=== PATIENT | female | born 1960 | race Caucasian/White ===

== ENCOUNTER → 2017-01-31 09:06 | Outpatient (CLI) | payer MEDICARE ==
[~2017-01-31 09:06] MED LIST: AMITRIPTYLINE H50 MG PO; ANCEF 1 GM/D5W 51 G1 IV; BAYER CHEWABLE81 MG PO; CLEOCIN PREMIX600 MG IV; CRESTOR5 MG PO; HYDROCODONE-APA1 TAB PO; INDERAL LA160 MG PO; LEVOXYL50 MCG PO; NEURONTIN 300300 MG PO; PLAVIX75 MG PO; PROTONIX40 MG PO; ROPINIROLE HCL2 MG PO; WELLBUTRIN SR150 MG PO; ZANAFLEX4 MG PO; ZESTRIL10 MG PO
[2017-04-06 12:51] VITALS: BMI 29.5
== END | disposition home or self-care (01) ==
LOC: D.NM 01-27 10:30
DX: Z85.3 Personal history of malignant neoplasm of breast (principal)

== ENCOUNTER 2017-02-01 11:47 | Outpatient (CLI) | payer MEDICARE ==
--- NOTE | ~2017-02-01 | HEMODYNAMI ---
PATIENT:OZZY MONTANA MEDICAL RECORD: [id number] : 56 LOCATION:D.CAT ADMISSION DATE: 02/01/17 Generatedon:02/01/201715:15 Patient name: OZZY MONTANA Patient #: [id number] SSN: : 1960 Date of study: 02/01/2017 Page: Of Hemodynamic Procedure Report Patient Data Patient Demographics Procedure consent was obtained First Name: OZZY Gender: Female Last Name: NAN : 1960 Middle Initial: RYAN Age: 56 year(s) Patient #: [id number] Race: Unknown Additional ID: [id number] Contact details [address]: [address] [place] [address] State: [place] City: [facility] [place] Zip code: [address] Admission Admission Data Admission Date: 02/01/2017 Admission Time: 11:47 Procedure Procedure Types Cath Procedure Peripheral Cath Diagnostic Procedure Cath Peripheral Iopeo-Rpzffvq-Epr-Off Procedure Description Procedure Date Procedure Date: 02/01/2017 Procedure Start Time: 14:54 Procedure End Time: 15:14 Procedure Staff Name Function Ricardo Metzger MD Performing Physician John Frankel RN Nurse Stephanie Huang RT Scrub Akshat Landers RT Monitor Procedure Data Cath Procedure Fluoroscopy Diagnostic fluoroscopy Total fluoroscopy Time: 1.5 time: 1.5 min min Diagnostic fluoroscopy Total fluoroscopy dose: 397 dose: 397 mGy mGy Contrast Material Contrast Material Type Amount (ml) Isovue 300 88 Entry Location Entry Primary Successful Side Size Upsize Upsize Entry Closure Succes sful Closure Location (Fr) 1 (Fr) 2 (Fr) Remarks Device Remarks Femoral Left 5 Fr Exoseal artery Estimated blood loss: 10 ml Diagnostic catheters Device Type Used For End Catheter Placement Cordis Tempo 5Fr UF Procedure catheter Procedure Complications No complications Procedure Medications Medication Administration Route Dosage Oxygen NC 2 l/min Heparin Flush Bag added to field 2 bags (1000units/500ml NS) 0.9% NaCl I.V. 100 ml/hr Fentanyl I.V. 50 mcg Versed I.V. 1 mg Clonidine P.O. 0.1 mg Fentanyl I.V. 50 mcg Versed I.V. 1 mg Hemodynamics Rest Heart Rate: 61 (bpm) Snapshots Pre Cath Intra NCS Post Cath Vital Signs Time Heart Resp SPO2 etCO2 NIBP (mmHg) Rhythm Pain Sedation Rate (ipm) (%) (mmHg) Status Level (bpm) 14:43:53 60 18 98 36.2 208/96(166) NSR 0 (11) 10(A) , No pain 14:48:24 60 17 100 31.7 197/94(152) NSR 0 (11) 10(A) , No pain 14:52:54 60 16 99 18.1 179/83(153) NSR 0 (11) 10(A) , No pain 14:57:24 64 18 92 32.4 170/87(118) NSR 0 (11) 9(A) , No pain 15:01:48 72 16 90 27.9 171/101(146) NSR 0 (11) 9(A) , No pain 15:07:18 69 18 89 35.4 172/86(151) NSR 0 (11) 9(A) , No pain 15:12:31 68 18 90 36.2 168/79(118) NSR 0 (11) 9(A) , No pain Medications Time Medication Route Dose Verified Delivered Reason Notes Ef fectiveness by by 14:43:15 Oxygen NC 2 Ricardo John Per l/min Yassine Frankel RN physician 14:43:24 Heparin Flush added 2 Ricardo John used for Bag to bags Yassine Frankel RN procedure (1000units/500ml field NS) 14:43:33 0.9% NaCl I.V. 100 Ricardo John Per ml/hr Yassine Frankel RN physician 14:50:29 Fentanyl I.V. 50 Ricardo John for sedation mcg Yassine Frankel RN 14:50:35 Versed I.V. 1 mg Ricardo John for sedation Yassine Frankel RN 14:52:19 Clonidine P.O. 0.1 Ricardo John for mg Yassine Frankel RN hypertension 14:53:48 Fentanyl I.V. 50 Ricardo John for sedation mcg Yassine Frankel RN 14:53:52 Versed I.V. 1 mg Ricardo Lopez for sedation Yassine Frankel soda fountain manager Log Time Note 14:25:41 John Frankel RN sent for patient. Start room use. 14:34:42 Time tracking: Regular hours 14:34:45 Plan of Care:Hemodynamics will remain stable., Cardiac rhythm will remain stable., Comfort level will be maintained., Respiratory function will remain adequate., Patient/ family verbilizes understanding of procedure., Procedure tolerated without complication., Recovers from procedure without complications.. 14:37:07 Patient received from Pre/Post Procedure Room to CCL 2 Alert and oriented. Tansferred to table in Supine position. 14:37:09 Warm blankets applied, and krystin hugger turned on for patient comfort. 14:37:09 Correct patient and procedure confirmed by team. 14:37:10 Signed procedure consent form obtained from patient. 14:37:11 ECG and BP/O2 sat monitors applied to patient. 14:41:35 Vital chart was started 14:43:15 Oxygen 2 l/min NC was administered by John Frankel RN; Per physician; 14:43:24 Heparin Flush Bag (1000units/500ml NS) 2 bags added to field was administered by John Frankel RN; used for procedure; 14:43:33 0.9% NaCl 100 ml/hr I.V. was administered by John Frankel RN; Per physician; 14:47:22 Baseline sample Acquired. 14:47:27 Rhythm: sinus rhythm 14:47:29 Full Disclosure recording started 14:47:36 H&P Date Dictated: 01/18/2017 Within 30 days and on chart., H&P Addendum completed by physician on day of procedure. (MUST COMPLETE FOR ALL OUTPATIENTS). 14:47:36 Pre-procedure instructions explained to patient. 14:47:37 Pre-op teaching completed and patient verbalized understanding. 14:47:38 Family in waiting room. 14:47:40 Patient NPO since Midnight. 14:47:43 Is the patient allergic to Iodine/contrast media? No. 14:47:46 Is patient on blood thinner?No 14:47:48 Patient diabetic? No. 14:47:57 Previous problem with sedation/anesthesia? No ? 14:48:00 Snore? Yes 14:48:59 Sleep apnea? No 14:49:01 Deviated septum? No 14:49:01 Opens mouth fully? Yes 14:49:02 Sticks out tongue? Yes 14:49:04 Airway obstruction? No ? 14:49:06 Dentures? Yes IN 14:49:09 Patient not . Patient is over age 55. 14:49:13 Pre procedure: right dorsailis pedis pulse 1+ Palpable, but thready & weak; easily obliterated 14:49:15 Pre procedure: left dorsailis pedis pulse 1+ Palpable, but thready & weak; easily obliterated 14:49:17 Patient pain scale 0/10 ?. 14:49:23 IV patent on arrival in left forearm with 0.9% NaCl at [facility]. 14:49:25 Lab results completed and on chart. 14:49:28 Bilateral groins area was prepped with chlora-prep and draped in sterile fashion 14:49:29 Alarms reviewed by R. N. 14:49:29 Sharps counted by scrub and verified by R.N. 14:49:30 --------ALL STOP TIME OUT------ 14:49:30 Final Timeout: patient, procedure, and site verified with staff and physician. All members of the team are in agreement. 14:49:32 Bilateral groins site verified by team. 14:49:35 Physical assessment completed. ASA score P 2 - A patient with mild systemic disease as per Ricardo Metzger MD. 14:49:38 Sedation plan: IV Moderate Sedation Versed, Fentanyl 14:50:29 Fentanyl 50 mcg I.V. was administered by John Frankel RN; for sedation; 14:50:35 Versed 1 mg I.V. was administered by John Frankel RN; for sedation; 14:50:35 Use device set Femoral Dx 14:50:36 Tegaderm 4 x 4 opened to sterile field. 14:50:37 Acist Hand Control opened to sterile field. 14:50:38 Acist Manifold opened to sterile field. 14:50:39 Acist Syringe opened to sterile field. 14:50:39 Bag Decanter opened to sterile field. 14:50:40 Medline Cath Pack opened to sterile field. 14:50:40 Terumo 5Fr Coleridge Sheath opened to sterile field. 14:50:40 [facility]haji 260cm J .035 wire opened to sterile field. 14:50:51 Cook 18G 7cm Percutaneous Entry needle opened to sterile field. 14:52:19 Clonidine 0.1 mg P.O. was administered by John Frankel RN; for hypertension; 14:53:48 Fentanyl 50 mcg I.V. was administered by John Frankel RN; for sedation; 14:53:52 Versed 1 mg I.V. was administered by John Frankel RN; for sedation; 14:54:27 Procedure started. 14:54:31 Local anesthetic to left femerol artery with Lidocaine 2% by Ricardo Metzger MD.INITIAL ACCESS ONLY 14:54:57 A 5 Fr sheath was inserted into the Left Femoral artery 14:55:47 A [employer] Tempo 5Fr UF catheter was advanced over the wire and used for Procedure. 14:57:27 Abdominal Aortagram was performed. 14:58:36 Left leg runoff performed. 14:59:22 Right leg runoff performed. 15:04:07 Catheter removed. 15:04:31 Cordis 5Fr Exoseal opened to sterile field. 15:04:52 Sheath removed intact; hemostasis achieved with Exoseal to the Left Femoral artery. 15:08:27 Procedure ended.(Physican Out) 15:09:31 Fluoroscopy time 01.50 minutes. 15:09:35 Fluoroscopy dose: 397 mGy 15:09:35 Flurop Dose total: 397 15:10:03 Contrast amount:Isovue 300 88ml. 15:10:04 Sharps counted by scrub and verified by R.N. 15:10:05 Insertion/operative site no bleeding no hematoma. 15:10:09 Post-op/insertion site Left Femoral artery dressed using a 4 x 4 and Tegaderm. 15:10:10 Post Procedure Pulses reassessed and unchanged 15:10:12 Post-procedure physical assessment completed. ASA score P 2 - A patient with mild systemic disease as per Ricardo Meztger MD. 15:10:14 Post procedure rhythm: unchanged. 15:10:17 Estimated blood loss: 10 ml 15:10:19 Post procedure instruction explained to patient.Patient verbalizes understanding. 15:10:19 Patient needs reinforcement of post procedure teaching. 15:12:30 Procedure and supply charges have been captured, reviewed, submitted and are correct. 15:12:33 Procedure Complication : No complications 15:14:09 Vital chart was stopped 15:14:10 See physician's report for complete and final results. 15:14:47 Report given to Pre/Post Procedure Room. 15:14:50 Patient transfered to Pre/Post Procedure Room with Stretcher. 15:14:52 Procedure ended. 15:14:52 Full Disclosure recording stopped 15:15:01 End room use (Document Last) Device Usage Item Name Manufacture Quantity Catalog Hospital Part Current Minimal Lot# / Number Charge Number Stock Stock Serial# Code Tegaderm 4 x 3M 1 [id number] [id number] [id number] 5 4 Acist Hand Acist 1 50130 136766 067496 [id number] 5 Control [employer] Inc Acist Acist 1 57535 601720 794185 285169 5 Manifold [employer] Inc Acist Acist 1 37505 388504 663618 140623 20 Syringe [employer] Inc Bag Decanter Microtek 1 2002S 442890 31853 699129 5 Medical Inc[employer] Medline Cath Cardinal 1 [id number] 303538 33624 399884 5 Pack Health Terumo 5Fr Terumo 1 [id number] [id number] 081072 028800 [address] Al[employer]aji 1 016334 587734 811787 667889 30 260cm J .035 wire Cook 18G 7cm Cook Medical 1 [id number] 929623 65512 702934 5 Percutaneous Entry needle Cordis Tempo Cardinal 1 [id number] 376523 434570 593476 10 5Fr Health catheter Cordis 5Fr Cardinal 1 [id number] [id number] 305070 651827 [address] [facility] [employer] Signature Audit Golden Stage Time Signature Unsigned Intra-Procedure 02/01/2017 Akshat Landers 3:15:15 PM RT(R) Signatures Monitor : Akshat Landers RT Signature : Date : Time : [id number] [place] [address]
[2017-02-01] MEDS ORDERED: HYDROCODONE-APA1 TAB PO (12:18)
[2017-02-01] MEDS ORDERED: WELLBUTRIN SR150 MG PO (12:18)
[2017-02-01] MEDS ORDERED: LEVOXYL50 MCG PO (12:19)
[2017-02-01] MEDS ORDERED: NEURONTIN 300300 MG PO (12:19)
[2017-02-01] MEDS ORDERED: ROPINIROLE HCL2 MG PO (12:19)
[2017-02-01] MEDS ORDERED: ZANAFLEX4 MG PO (12:20)
[2017-02-01] MEDS ORDERED: CRESTOR5 MG PO (12:20)
[2017-02-01] MEDS ORDERED: PROTONIX40 MG PO (12:20)
[2017-02-01] MEDS ORDERED: AMITRIPTYLINE H50 MG PO (12:21)
[2017-02-01] MEDS ORDERED: INDERAL LA160 MG PO (12:21)
[2017-02-01] MEDS ORDERED: ZESTRIL10 MG PO (12:22)
[2017-02-01 12:25] VITALS: BP 201/83; BMI 27.3
[2017-02-01 12:30] LABS: BASOPHILS 1.2 % (0-2); EOSINOPHILS 4.5 % (0-7); HEMATOCRIT 43.9 % (36.0-48.0); HEMOGLOBIN 14.6 g/dL (12-16); IMMATURE GRANULOCYTES 0.3 % (0-5); LYMPHOCYTES 25.2 % (15-50); MCH 31.9 pg (26.0-34.0); MCHC 33.3 g/dL (31.0-37.0); MCV 95.9 fL (80.0-100.0); MEAN PLATELET VOLUME 10.5 fL (7.4-10.4); MONOCYTES 9.9 % (2-11); NEUTROPHILS 58.9 % (40-80); PLATELET COUNT 207 10x3/uL (130-400); RBC 4.58 10x6/uL (4.00-5.40); RDW 13.4 % (11.5-14.5); WBC 7.8 10x3/uL (4.8-10.8)
[2017-02-01 12:39] LABS: CHLORIDE - SERUM 104 mmol/L (98-107); POTASSIUM - SERUM 4.6 mmol/L (3.5-5.1); SODIUM 141 mmol/L (136-145)
[2017-02-01 12:46] LABS: CALC OSMOLALITY 280 mosm/kg (275-300); CALCIUM 9.3 mg/dL (8.5-10.1); CARBON DIOXIDE 26.1 mmol/L (21.0-32.0); CREATININE - SERUM 0.8 mg/dL (0.6-1.3); GLUCOSE 89 mg/dL (74-106); UREA NITROGEN 14 mg/dL (7-18); eGFR NON AFRICAN AMERICAN 78 mL/min (90-120)
--- NOTE | 2017-02-01 15:35 | NUR ---
2L NC, NO RESP DISTRESS. LEFT GROIN 5F EXOSEAL CDI, NO BLEEDING OR HEMATOMA NOTED. NO C/O PAIN OR NAUSEA. SYSTOLIC BP IN THE 180s. CLONIDINE GIVEN PER ORDERS. SEE MAR. FAMILY AT BEDSIDE, CALL LIGHT WITHIN REACH.
--- NOTE | 2017-02-01 16:05 | NUR ---
PLACED ON BEDPAN, VOIDED 300CC OF CLEAR YELLOW URINE.
--- NOTE | 2017-02-01 17:12 | NUR ---
HOB ELEVATED 30 DEGREES. LEFT GROIN 5F EXOSEAL CDI, NO BLEEDING OR HEMATOMA NOTED.
--- NOTE | 2017-02-01 17:27 | NUR ---
LEFT FA PIV D/C'D WITH CATHETER INTACT, BAND AID TO SITE. UP TO BEDSIDE TO GET DRESSED.
--- NOTE | 2017-02-01 17:33 | NUR ---
DISCHARGE INSTRUCTIONS GIVEN, VERBALIZED UNDERSTANDING.
--- NOTE | 2017-02-01 17:40 | NUR ---
TAKEN OUT VIA WHEELCHAIR BY CATH JUDO TEACHER. LEFT FACILITY WITH FAMILY AND ALL PERSONAL BELONGINGS.
[2017-05-08] MEDS ORDERED: ANCEF 1 GM/D5W 51 G1 IV (13:45)
[2017-05-08] MEDS ORDERED: CLEOCIN PREMIX600 MG IV (13:46)
== END 2017-02-01 17:40 | disposition home or self-care (01) ==
LOC: D.CATH 11:47
PROVIDERS: Internal Medicine Cardiovascular Disease
DX: I70.211 Atherosclerosis of native arteries of extremities with intermittent claudication, right leg (principal); Z01.812 Encounter for preprocedural laboratory examination

== ENCOUNTER 2017-02-20 12:00 | Outpatient (CLI) | payer MEDICARE ==
[~2017-02-20] VITALS: Ht 152.4 cm; Wt 63.6 kg
--- NOTE | ~2017-02-20 | HEMODYNAMI ---
PATIENT:OZZY MONTANA MEDICAL RECORD: [id number] : 56 LOCATION:D.CAT ADMISSION DATE: 02/20/17 Generatedon:02/20/201716:24 Patient name: OZZY MONTANA Patient #: [id number] SSN: : 1960 Date of study: 02/20/2017 Page: Of Hemodynamic Procedure Report Patient Data Patient Demographics Procedure consent was obtained First Name: OZZY Gender: Female Last Name: NAN : 1960 [facility] Initial: RYAN Age: 56 year(s) Patient #: [id number] Race: Unknown Additional ID: [id number] Contact details Address: [address] [place] [address] State: [place] City: [facility] Zip code: [address] Past Medical History Allergies Allergen Reaction Date Comments Reported Other allergy 02/20/2017 Morphine,Adhesive Tape Admission Admission Data Admission Date: 02/20/2017 Admission Time: 12:00 Admit Source: Other Lab Results Lab Result Date: 02/20/2017 Lab Result Time: 0:00 Biochemistry Name Units Result Min Max BUN mg/dl 13 --(--*-)-- 7 18 Creatinine mg/dl 0.8 --(-*--)-- 0.6 1.3 CBC Name Units Result Min Max Hemoglobin g/dl 15 --(-*--)-- 13.5 17.5 Procedure Procedure Types Cath Procedure Peripheral vascular Intervention Angioplasty Angioplasty Iliac Initial Procedure Description Procedure Date Procedure Date: 02/20/2017 Procedure Start Time: 14:31 Procedure End Time: 16:24 Procedure Staff Name Function Ricardo Metzger MD Performing Physician Herman John RT Monitor Jessica Huntley RT Scrub Stephanie Huang RT Monitor Jeri Brink RN Nurse Procedure Data Cath Procedure Fluoroscopy Diagnostic fluoroscopy Total fluoroscopy Time: time: 24.3 min 24.3 min Diagnostic fluoroscopy Total fluoroscopy dose: 711 dose: 711 mGy mGy Contrast Material Contrast Material Type Amount (ml) Isovue 300 127 Entry Location Entry Primary Successful Side Size Upsize Upsize Entry Closure Succes sful Closure Location (Fr) 1 (Fr) 2 (Fr) Remarks Device Remarks Femoral Left 5 Fr Exoseal 5F artery EXOSEAL Femoral Right 6 Fr Exoseal 6F artery Short EXOSEAL Estimated blood loss: 10 ml Diagnostic catheters Device Type Used For End Catheter Placement Cordis Tempo 5Fr UF Procedure catheter Procedure Complications No complications Procedure Medications Medication Administration Route Dosage Fentanyl I.V. 50 mcg Versed I.V. 1 mg 0.9% NaCl I.V. 100 ml/hr Lidocaine 2% added to field 20 Heparin Flush Bag added to field 2 bags (1000units/500ml NS) Oxygen NC 2 l/min Fentanyl I.V. 50 mcg Versed I.V. 1 mg Fentanyl I.V. 25 mcg Heparin Bolus I.V. 6000 units Fentanyl I.V. 25 mcg Nitroglycerin IC/IA I.C. 200 mcg Fentanyl I.V. 50 mcg Plavix P.O. 600 mg Hemodynamics Rest HGB: 15 (g/dl) Heart Rate: 61 (bpm) Snapshots Pre Cath Intra NCS Post Cath Vital Signs Time Heart Resp SPO2 etCO2 NIBP (mmHg) Rhythm Pain Sedation Rate (ipm) (%) (mmHg) Status Level (bpm) 14:17:10 64 17 97 26.2 181/94(145) NSR 0 (11) 10(A) , No pain 14:21:51 62 18 99 30 153/79(119) NSR 0 (11) 10(A) , No pain 14:26:33 61 21 99 30 154/77(129) NSR 0 (11) 10(A) , No pain 14:31:18 58 14 97 33 160/71(106) NSR 0 (11) 10(A) , No pain 14:36:01 65 14 94 36.8 158/88(128) NSR 0 (11) 9(A) , No pain 14:40:39 67 14 95 37.5 147/81(120) NSR 0 (11) 9(A) , No pain 14:45:20 65 14 94 37.5 159/83(147) NSR 0 (11) 9(A) , No pain 14:50:05 62 14 93 37.5 136/80(102) NSR 0 (11) 9(A) , No pain 14:55:22 64 15 94 36.8 140/73(101) NSR 0 (11) 9(A) , No pain 15:00:03 63 15 94 35.3 149/77(130) NSR 0 (11) 9(A) , No pain 15:04:47 65 15 94 36 154/77(97) NSR 0 (11) 9(A) , No pain 15:09:32 68 14 94 33 162/76(116) NSR 0 (11) 9(A) , No pain 15:14:08 70 14 94 36.8 137/73(129) NSR 0 (11) 9(A) , No pain 15:18:47 66 15 93 36.8 137/73(132) NSR 0 (11) 9(A) , No pain 15:23:25 71 14 93 37.5 137/72(111) NSR 0 (11) 9(A) , No pain 15:28:08 69 15 93 36.8 141/72(126) NSR 0 (11) 9(A) , No pain 15:32:53 64 15 94 36.8 147/68(126) NSR 0 (11) 9(A) , No pain 15:37:34 65 15 94 35.3 142/75(117) NSR 0 (11) 9(A) , No pain 15:42:12 64 13 94 36.8 131/66(123) NSR 0 (11) 9(A) , No pain 15:47:29 64 15 94 37.5 151/72(99) NSR 0 (11) 9(A) , No pain 15:52:14 64 14 94 37.5 138/74(123) NSR 0 (11) 9(A) , No pain 15:56:57 64 14 95 36 145/73(112) NSR 0 (11) 9(A) , No pain 16:01:42 64 13 93 36 138/71(103) NSR 0 (11) 9(A) , No pain 16:06:59 62 17 96 35.2 154/86(135) NSR 0 (11) 9(A) , No pain 16:12:23 66 21 98 33.7 164/89(113) NSR 0 (11) 10(A) , No pain 16:17:48 65 17 98 22.5 179/88(133) NSR 0 (11) 10(A) , No pain 16:22:31 71 16 97 33.8 166/93(119) NSR 0 (11) 10(A) , No pain Medications Time Medication Route Dose Verified Delivered Reason Not es Effectiveness by by 14:25:10 Heparin Flush added 2 bags Ricardo Ricardo for Bag to Yassine Metzger MD vasodilation (1000units/500ml field NS) 14:25:24 Oxygen NC 2 l/min Ricardo Buffie Per physician Yassine Brink RN 14:25:33 0.9% NaCl I.V. 100ml/hr Ricardo Buffie used for Yassine Brink RN procedure 14:25:53 Lidocaine 2% added 20ml Ricardo Ricardo for local to vial Yassine Metzger MD anesthetic field 14:27:57 Fentanyl I.V. 50 mcg Ricardo Buffie for sedation Yassine Brink RN 14:28:12 Versed I.V. 1 mg Ricardo Buffie for sedation Yassine Brink RN 14:31:51 Fentanyl I.V. 50 mcg Ricardo Buffie for sedation Yassine Brink RN 14:31:59 Versed I.V. 1 mg Ricardo Buffie for sedation Yassine Brink RN 15:07:58 Fentanyl I.V. 25 mcg Ricardo Buffie for sedation Yassine Brink RN 15:18:14 Heparin Bolus I.V. 6000 Ricardo Buffie for keagan ified units Yassine Brink RN anticoagulation with dr metzger. 15:37:27 Fentanyl I.V. 25 mcg Ricardo Buffie for sedation Yassine Brink RN 16:00:23 Nitroglycerin I.C. 200 mcg Ricardo Ricardo for IC/IA Yassine Metzger MD vasodilation 16:07:06 Fentanyl I.V. 50 mcg Ricardo Ricardo for sedation Yassine Metzger MD 16:23:42 Plavix P.O. 600 mg Ricardo Buffie for Yassine Brink RN antiplatelet therapy Procedure Log Time Note 13:49:59 Informed consent obtained and on chart 13:51:03 Admit Source: Other 13:51:42 Diagnostic Cath status Elective 13:51:43 Time tracking: Regular hours 13:51:47 Plan of Care:Hemodynamics will remain stable., Cardiac rhythm will remain stable., Comfort level will be maintained., Respiratory function will remain adequate., Patient/ family verbilizes understanding of procedure., Procedure tolerated without complication., Recovers from procedure without complications.. 14:02:46 Jeri Brink RN sent for patient. Start room use. 14:11:21 Patient received from Pre/Post Procedure Room to CCL 1 Alert and oriented. Tansferred to table in Supine position. 14:11:22 Warm blankets applied, and krystin hugger turned on for patient comfort. 14:11:23 Correct patient and procedure confirmed by team. 14:11:24 ECG and BP/O2 sat monitors applied to patient. 14:16:16 Vital chart was started 14:18:16 H&P Date Dictated: 02/20/2017 New H&P dictated by physician.. 14:18:18 Pre-procedure instructions explained to patient. 14:18:18 Pre-op teaching completed and patient verbalized understanding. 14:18:19 Family in waiting room. 14:18:21 Patient NPO since Midnight. 14:18:35 Patient allergic to Other allergyMorphine,Adhesive Tape 14:18:37 Is the patient allergic to Iodine/contrast media? No. 14:18:39 Is patient on blood thinner?No 14:19:02 Patient diabetic? No. 14:19:08 Previous problem with sedation/anesthesia? No ? 14:19:10 Snore? Yes 14:19:12 Sleep apnea? No 14:19:20 Deviated septum? No 14:19:23 Opens mouth fully? Yes 14:19:24 Sticks out tongue? Yes 14:19:26 Airway obstruction? No ? 14:19:38 Dentures? Yes IN TIGHT 14:19:44 Pre procedure: right dorsailis pedis pulse 2+ Normal; easily identifiable; not easily obliterated 14:19:48 Patient pain scale 0/10 ?. 14:20:25 IV patent on arrival in left antecubital with 0.9% NaCl at [facility]. 14:20:50 Lab results completed and on chart. 14:22:52 Lab Result : BUN 13 mg/dl 14:22:52 Lab Result : Creatinine 0.8 mg/dl 14:22:52 Lab Result : Hemoglobin 15 g/dl 14:23:09 Bilateral groins area was prepped with chlora-prep and draped in sterile fashion 14:23:11 Alarms reviewed by R. N. 14:23:11 Sharps counted by scrub and verified by R.N. 14:25:05 Use device set Femoral PCI 14:25:09 Tegaderm 4 x 4 opened to sterile field. 14:25:10 Heparin Flush Bag (1000units/500ml NS) 2 bags added to field was administered by Ricardo Metzger MD; for vasodilation; 14:25:10 Acist Manifold opened to sterile field. 14:25:11 Acist Syringe opened to sterile field. 14:25:11 Acist Hand Control opened to sterile field. 14:25:13 Merit BasixCompak Inflation Kit opened to sterile field. 14:25:14 St Alhaji 260cm J .035 wire opened to sterile field. 14:25:15 Medline Cath Pack opened to sterile field. 14:25:16 Bag Decanter opened to sterile field. 14:25:18 Terumo 6Fr Monson Sheath opened to sterile field. 14:25:24 Oxygen 2 l/min NC was administered by Jeri Brink RN; Per physician; 14:25:33 0.9% NaCl 100ml/hr I.V. was administered by Jeri Brink RN; used for procedure; 14:25:44 Terumo 5Fr Monson Sheath opened to sterile field. 14:25:45 Cordis 6Fr Brite Tip 35cm Sheath opened to sterile field. 14:25:53 Lidocaine 2% 20ml vial added to field was administered by Ricardo Metzger MD; for local anesthetic; 14:26:01 Baseline sample Acquired. 14:26:11 Rhythm: sinus rhythm 14:26:13 Full Disclosure recording started 14:26:46 --------ALL STOP TIME OUT------ 14:26:48 Final Timeout: patient, procedure, and site verified with staff and physician. All members of the team are in agreement. 14:26:50 Bilateral groins site verified by team. 14:26:52 Physical assessment completed. ASA score P 2 - A patient with mild systemic disease as per Ricardo Metzger MD. 14::57 Sedation plan: IV Moderate Sedation Medication:Versed, Fentanyl 14::57 Fentanyl 50 mcg I.V. was administered by Buffie Brink RN; for sedation; 14:28:12 Versed 1 mg I.V. was administered by Jeri Brink RN; for sedation; 14:31:49 Procedure started. 14:31:51 Fentanyl 50 mcg I.V. was administered by Jrei Brink RN; for sedation; 14:31:55 Local anesthetic to left femerol artery with Lidocaine 2% by Ricardo Metzger MD.INITIAL ACCESS ONLY 14:31:59 Versed 1 mg I.V. was administered by Jeri Brink RN; for sedation; 14:33:15 Zero performed for pressure channel P1 14:49:08 CovidiAskYou Wholey 300cm 0.035 wire opened to sterile field. 14:49:37 A 5 Fr sheath was inserted into the Left Femoral artery 14:50:42 A NewACT 5Fr UF catheter was advanced over the wire and used for Procedure. 14:51:25 Wire redirected to WHOLEY. 14:52:59 Right leg runoff performed. 14:54:07 Local anesthetic to right femoral artery with Lidocaine 2% by Ricardo Metzger MD.ADDITIONAL ACCESS 15:00:08 Cook 4Fr Micropuncture ([id number]) opened to sterile field. 15:07:20 Access obtained with 4Fr micropunture. 15:07:58 Fentanyl 25 mcg I.V. was administered by Jeri Brink RN; for sedation; 15:08:22 A 6 Fr Short sheath was inserted into the Right Femoral artery 15:10:54 CSI Regalia wire 300cm opened to sterile field. 15:11:36 CXI SUPPORT .018 150CM STR catheter opened to sterile field. 15:12:46 REGALIA wire advanced. 15:13:05 CXI SUPPORT ADVANCED OVER REGALIA 15:15:01 Wire advanced across lesion. 15:18:14 Heparin Bolus 6000 units I.V. was administered by Jeri Brink RN; for anticoagulation; verified with dr metzger. 15:21:24 Inflation number: 1 A Saber 4.0 x 4 x 150 balloon was prepped and advanced across the Proximal Common Femoral, Right, then inflated to 9 SHAWN for 0:10 (min:sec). 15:22:26 Inflation number: 2 The Saber 4.0 x 4 x 150 balloon was reinflated across the Proximal Common Femoral, Right, to 9 SHAWN for 0:00 (min:sec). 15:23:37 Balloon removed over the wire. 15:24:25 Terumo 4FR Straight 100CM glide catheter opened to sterile field. 15:29:42 Inflation number: 3 A Cordis Powerflex Pro 6.0 x 40 x 135cm balloon was prepped and advanced across the Proximal Common Femoral, Right, then inflated to 9 SHAWN for 0:30 (min:sec). 15:31:43 Inflation number: 4 The Cordis Powerflex Pro 6.0 x 40 x 135cm balloon was reinflated across the Proximal Common Femoral, Right, to 9 SHAWN for 1:07 (min:sec). 15:33:44 Inflation number: 5 The Cordis Powerflex Pro 6.0 x 40 x 135cm balloon was reinflated across the Proximal Common Femoral, Right, to 2 SHAWN for 1:09 (min:sec). 15:35:47 Balloon removed over the wire. 15:37:27 Fentanyl 25 mcg I.V. was administered by Jeri Brink RN; for sedation; 15:38:33 Inflation number: 6 A Cordis Powerflex Pro 7.0 x 20 x 135 cm balloon was prepped and advanced across the Proximal Common Femoral, Right, then inflated to 6 SHAWN for 0:51 (min:sec). 15:40:00 Inflation number: 7 The Cordis Powerflex Pro 7.0 x 20 x 135 cm balloon was reinflated across the Proximal Common Femoral, Right, to 10 SHAWN for 1:05 (min:sec). 15:41:34 Inflation number: 8 The Cordis Powerflex Pro 7.0 x 20 x 135 cm balloon was reinflated across the Proximal Common Femoral, Right, to 10 SHAWN for 1:10 (min:sec). 15:45:21 Inflation number: 9 The Cordis Powerflex Pro 7.0 x 20 x 135 cm balloon was reinflated across the Proximal Common Femoral, Right, to 10 SHAWN for 1:32 (min:sec). 15:45:44 Balloon removed over the wire. 15:52:07 Inflation number: 10 The Cordis Powerflex Pro 6.0 x 40 x 135cm balloon was reinflated across the Proximal Common Femoral, Right, to 12 SHAWN for 2:22 (min:sec). 15:52:27 Balloon removed over the wire. 16:00:23 Nitroglycerin IC/IA 200 mcg I.C. was administered by Ricardo Metzger MD; for vasodilation; 16:04:28 Inflation number: 11 A Cordis Powerflex Pro 5.0 x 40 x 135cm balloon was prepped and advanced across the Proximal Common Femoral, Right, then inflated to 2 SHAWN for 1:10 (min:sec). 16:04:39 Balloon removed over the wire. 16:07:06 Fentanyl 50 mcg I.V. was administered by Ricardo Metzger MD; for sedation; 16:08:19 Catheter removed. 16:08:40 Cordis 5Fr Exoseal opened to sterile field. 16:08:41 Cordis 6Fr Exoseal opened to sterile field. 16:09:08 Sheath removed intact; hemostasis achieved with Exoseal to the Left Femoral artery. 16:09:19 Sheath removed intact; hemostasis achieved with Exoseal to the Right Femoral artery. 16:10:32 Procedure ended.(Physican Out) 16:11:23 Fluoroscopy time 24.30 minutes. 16::28 Flurop Dose total: 711 16:: Fluoroscopy dose: 711 mGy 16:11:32 Contrast amount:Isovue 300 127ml. 16:11:34 Sharps counted by scrub and verified by R.N. 16:13:22 Insertion/operative site no bleeding no hematoma. 16:13:46 Post-op/insertion site Right Femoral artery dressed using a 4 x 4 and Tegaderm. 16:13:53 Post-op/insertion site Left Femoral artery dressed using a 4 x 4 and Tegaderm. 16:14:36 Post right femoral artery:stable, soft, clean and dry 16:14:44 Post left femerol artery:stable, clean and dry, unstable 16:14:52 Post Procedure Pulses reassessed and unchanged 16:14:57 Post procedure: right dorsailis pedis pulse 2+ Normal; easily identifiable; not easily obliterated. 16:15:01 Post-procedure physical assessment completed. ASA score P 2 - A patient with mild systemic disease as per Ricardo Metzger MD. 16:15:06 Post procedure rhythm: unchanged. 16:15:09 Estimated blood loss: 10 ml 16:15:10 Post procedure instruction explained to patient.Patient verbalizes understanding. 16:15:11 Patient needs reinforcement of post procedure teaching. 16:15:49 Procedure type changed to Cath procedure, Peripheral vascular Intervention, Angioplasty, Angioplasty Iliac Initial 16:19:55 Procedure and supply charges have been captured, reviewed, submitted and are correct. 16:19:58 Procedure Complication : No complications 16:23:42 Plavix 600 mg P.O. was administered by Jeri Brink RN; for antiplatelet therapy; 16:23:53 Vital chart was stopped 16:23:53 See physician's report for complete and final results. 16:23:55 Report given to Pre/Post Procedure Room. 16:23:59 Patient transfered to Pre/Post Procedure Room with Bed. 16:24:01 Procedure ended. 16:24:01 Full Disclosure recording stopped 16:24:09 End room use (Document Last) Intervention Summary Intervention Notes Time ActionType Lesion and Equipment Action# Pressure Duration Attributes Used 15:21:24 Inflate Proximal Saber 4.0 1 9 00:10 balloon Common x 4 x 150 Femoral, balloon Right 15:22:26 Reinflate Proximal Saber 4.0 2 9 00:00 balloon Common x 4 x 150 Femoral, balloon Right 15:29:42 Inflate Proximal Cordis 3 9 00:30 balloon Common Powerflex Femoral, Pro 6.0 x Right 40 x 135cm balloon 15:31:43 Reinflate Proximal Cordis 4 9 01:07 balloon Common Powerflex Femoral, Pro 6.0 x Right 40 x 135cm balloon 15:33:44 Reinflate Proximal Cordis 5 2 01:09 balloon Common Powerflex Femoral, Pro 6.0 x Right 40 x 135cm balloon 15:38:33 Inflate Proximal Cordis 6 6 00:51 balloon Common Powerflex Femoral, Pro 7.0 x Right 20 x 135 cm balloon 15:40:00 Reinflate Proximal Cordis 7 10 01:05 balloon Common Powerflex Femoral, Pro 7.0 x Right 20 x 135 cm balloon 15:41:34 Reinflate Proximal Cordis 8 10 01:10 balloon Common Powerflex Femoral, Pro 7.0 x Right 20 x 135 cm balloon 15:45:21 Reinflate Proximal Cordis 9 10 01:32 balloon Common Powerflex Femoral, Pro 7.0 x Right 20 x 135 cm balloon 15:52:07 Reinflate Proximal Cordis 10 12 02:22 balloon Common Powerflex Femoral, Pro 6.0 x Right 40 x 135cm balloon 16:04:28 Inflate Proximal Cordis 11 2 01:10 balloon Common Powerflex Femoral, Pro 5.0 x Right 40 x 135cm balloon Device Usage Item Name Manufacture Quantity Catalog Hospital Part Current Mini mal Lot# / Number Charge Number Stock Stock Serial# Code Tegaderm 4 x 3M 1 [id number] [id number] 5 4 Acist Acist Medical 1 07902 869827 073988 020676 5 Manifold Systems Inc Acist Syringe Acist Medical 1 44660 769036 630766 796696 20 Systems Inc Acist Hand Acist Medical 1 60098 185678 946836 213290 5 Control Systems Inc [facility] 1 [id number] 363282 409884 833885 [address] [facility] [address] [facility] Alhaji 1 [id number] 194310 627204 574405 30 J .035 wire Medline Cath Cardinal 1 [id number] 051280 79800 572124 5 Pack Health Bag Decanter Microtek 1 2002S 716233 88117 013139 5 Medical Inc. Terumo 6Fr Terumo 1 [id number] 190382 997972 796550 40 Monson Sheath Terumo 5Fr Terumo 1 [id number] 529751 126631 834893 40 Monson Sheath Cordis 6Fr Cardinal 1 [id number] 812538 586508 513483 1 Brite Tip Health 35cm Sheath Covidien Medtronic 1 [id number] 881187 974875 049507 3 Wholey 300cm 0.035 wire Cordis Tempo Cardinal 1 [id number] 120295 880356 890877 10 5Fr UF Health catheter Cook 4Fr Cook Medical 1 [id number] 229785 169819 851042 5 Micropuncture (G00074) CSI Regalia Cardiovascular 1 [id number] 092396 983499 129973 1 wire 300cm systems CXI SUPPORT Cook Medical 1 [id number] 884432 069989 5 .018 150CM STR catheter Saber 4.0 x 4 Cardinal 1 [id number] 259567 720555 5 x 150 balloon Health Terumo 4FR Terumo 1 [id number] 136768 433314 5 Straight 100CM glide catheter Cordis Cardinal 1 [id number] 067252 014103 351276 5 Powerflex Pro Health 6.0 x 40 x 135cm balloon Cordis Cardinal 1 [id number] 139055 732436 306286 5 Powerflex Pro Health 7.0 x 20 x 135 cm balloon Cordis Cardinal 1 [id number] 363015 399618 537890 5 Powerflex Pro Health 5.0 x 40 x 135cm balloon Cordis 5Fr Cardinal 1 EX500 729951 046881 505797 10 Exoseal Health Cordis 6Fr Cardinal 1 EX600 910410 365803 321197 10 Exoseal Health Signature Audit Costa Stage Time Signature Unsigned Intra-Procedure 02/20/2017 Stephanie Huang 4:24:26 PM RT(R) Signatures Monitor : Herman John RT Signature : Date : Time : Monitor : Stephanie Huang Signature : RT Date : Time : [place] [id number] [place] [address]
[~2017-02-20 12:00] MED LIST changes: -ANCEF 1 GM/D5W 51 G1 IV; -BAYER CHEWABLE81 MG PO; -CLEOCIN PREMIX600 MG IV; -PLAVIX75 MG PO
[2017-02-20 12:24] VITALS: BP 179/74; Ht 152.4 cm; Wt 63.6 kg
[2017-02-20 12:56] LABS: BASOPHILS 1.5 % (0-2); EOSINOPHILS 5.6 % (0-7); IMMATURE GRANULOCYTES 0.3 % (0-5); LYMPHOCYTES 28.7 % (15-50); MCHC 33.3 g/dL (31.0-37.0); MCV 95.9 fL (80.0-100.0); MONOCYTES 9.9 % (2-11); PLATELET COUNT 223 10x3/uL (130-400); RBC 4.69 10x6/uL (4.00-5.40); RDW 13.2 % (11.5-14.5); WBC 6.7 10x3/uL (4.8-10.8)
[2017-02-20 13:15] LABS: CALC OSMOLALITY 277 mosm/kg (275-300); CALCIUM 9.1 mg/dL (8.5-10.1); CARBON DIOXIDE 28.7 mmol/L (21.0-32.0); CHLORIDE - SERUM 104 mmol/L (98-107); CREATININE - SERUM 0.8 mg/dL (0.6-1.3); GLUCOSE 98 mg/dL (74-106); SODIUM 139 mmol/L (136-145); UREA NITROGEN 13 mg/dL (7-18); eGFR NON AFRICAN AMERICAN 78 mL/min (90-120)
[2017-02-20] MEDS ORDERED: BAYER CHEWABLE81 MG PO (16:50)
[2017-02-20] MEDS ORDERED: PLAVIX75 MG PO (16:50)
--- NOTE | 2017-02-20 17:23 | NUR ---
1650 LYING FLAT, ROOM AIR WITH NO RESP. DISTRESS. NSR RATE 66 WNO C/O CHEST PAIN. PULSES PALP X 4. RIGHT GROIN 5F EXOSEAL C/D/I. LEFT GROIN 6F EXOSEAL C/D/I WITH NO HEMATOMA OR BLEEDING. VOIDED 200CC VIA BEDPAN. URINE YELLOW/CLEAR. DR. MAHAN AT BEDSIDE TO DISCUSS PROCEDURE AND PLAN FOR FURTHER TREATMENT.
--- NOTE | 2017-02-20 17:28 | NUR ---
1720 REMAINS FLAT, ROOM AIR AND ALL VITALS WNL. BLE PULSES PALP. L/R GROINS C/D/I W NO HEMAOTOMA OR BLEEDING.
--- NOTE | 2017-02-20 17:56 | NUR ---
1750 R/L GROIN REMAIN C/D/I W NO HEMATOMA OR BLEEDING.
--- NOTE | 2017-02-20 18:20 | NUR ---
1820 PT VOIDED APPROXIMATELY 400 CC OF CLEAR YELLOW URINE TO URINAL. LEFT AND RIGHT GROIN DRESSINGS ARE CDI, NO BLEEDING OR HEMATOMA NOTED. FEET WARM, CAP REFILL IS BRISK. NO FAMILY AT BEDSIDE, CALL LIGHT IN REACH.
--- NOTE | 2017-02-20 19:00 | NUR ---
1900 PT DENIES ANY C/O. SANDWICH SERVED. DRESSINGS TO LEFT AND RIGHT GROINS ARE CDI.
--- NOTE | 2017-02-20 19:30 | NUR ---
1929 SANDWICH TRAY SERVED. DRESSINGS BILAT GROINS CDI. PT DENIES ANY C/O.
--- NOTE | 2017-02-20 19:50 | NUR ---
1940 [facility] ELEVATED. DC INSTRUCTIONS REVIEWED WITH PT AND DAUGHTER WHO VERBALIZE UNDERSTANDING.
--- NOTE | 2017-02-20 19:51 | NUR ---
BILAT GROIN DRESSINGS REMAIN CDI. IV DC'D WITH CATH INTACT. PT DRESSING FOR DC TO HOME.
--- NOTE | 2017-02-20 20:05 | NUR ---
2000 DRESSINGS TO BILAT GROINS REMAIN CDI. PT ESCORTED TO PRIVATE AUTO VIA WC BY NURSE WITH DAUGHTER DRIVING HER HOME. PT DENIES ANY C/O UPON DC.
[2017-05-08] MEDS ORDERED: ANCEF 1 GM/D5W 51 G1 IV (13:45)
[2017-05-08] MEDS ORDERED: CLEOCIN PREMIX600 MG IV (13:46)
== END 2017-02-20 20:00 | disposition home or self-care (01) ==
LOC: D.CATH 12:00
PROVIDERS: Internal Medicine Cardiovascular Disease
DX: I70.211 Atherosclerosis of native arteries of extremities with intermittent claudication, right leg (principal); I25.10 Atherosclerotic heart disease of native coronary artery without angina pectoris; I10 Essential (primary) hypertension; Z01.812 Encounter for preprocedural laboratory examination

== ENCOUNTER 2017-03-30 06:27 | Inpatient (IN) | payer MEDICARE, MEDICAID | END 2017-05-12 20:22 | DRG 270 | LOC: D.CATH 06:27 → D.CVICU 14:16 → D.ICU 04-13 11:28 → D.M2 05-01 18:12 | PROC: 04CK3ZZ Extirpation of Matter from Right Femoral Artery, Percutaneous Approach (ICD-10-PCS; 2017-03-30) | PROC: 047 Lower Arteries, Dilation (ICD-10-PCS; 2017-03-30) | PROC: 047K3D1 Dilation of Right Femoral Artery with Intraluminal Device, using Drug-Coated Balloon, Percutaneous Approach (ICD-10-PCS; 2017-03-30) | PROC: 0KNR0ZZ Release Left Upper Leg Muscle, Open Approach (ICD-10-PCS; principal; 2017-04-02) | PROC: 5A09457 Assistance with Respiratory Ventilation, 24-96 Consecutive Hours, Continuous Positive Airway Pressure (ICD-10-PCS; 2017-04-03) | PROC: 0B9F8ZX Drainage of Right Lower Lung Lobe, Via Natural or Artificial Opening Endoscopic, Diagnostic (ICD-10-PCS; 2017-04-04) | PROC: 0BH17EZ Insertion of Endotracheal Airway into Trachea, Via Natural or Artificial Opening (ICD-10-PCS; 2017-04-04) | PROC: 5A1955Z Respiratory Ventilation, Greater than 96 Consecutive Hours (ICD-10-PCS; 2017-04-04) | PROC: 02HV33Z Insertion of Infusion Device into Superior Vena Cava, Percutaneous Approach (ICD-10-PCS; 2017-04-04) | PROC: B548ZZA Ultrasonography of Superior Vena Cava, Guidance (ICD-10-PCS; 2017-04-04) | PROC: 3E0T3BZ Introduction of Anesthetic Agent into Peripheral Nerves and Plexi, Percutaneous Approach (ICD-10-PCS; 2017-04-10) | PROC: 0BDB8ZX Extraction of Left Lower Lobe Bronchus, Via Natural or Artificial Opening Endoscopic, Diagnostic (ICD-10-PCS; 2017-04-12) | PROC: 0BD48ZX Extraction of Right Upper Lobe Bronchus, Via Natural or Artificial Opening Endoscopic, Diagnostic (ICD-10-PCS; 2017-04-12) | PROC: 0BD88ZX Extraction of Left Upper Lobe Bronchus, Via Natural or Artificial Opening Endoscopic, Diagnostic (ICD-10-PCS; 2017-04-12) | PROC: 0BD38ZX Extraction of Right Main Bronchus, Via Natural or Artificial Opening Endoscopic, Diagnostic (ICD-10-PCS; 2017-04-12) | PROC: 0BD78ZX Extraction of Left Main Bronchus, Via Natural or Artificial Opening Endoscopic, Diagnostic (ICD-10-PCS; 2017-04-12) | PROC: 0BD68ZX Extraction of Right Lower Lobe Bronchus, Via Natural or Artificial Opening Endoscopic, Diagnostic (ICD-10-PCS; 2017-04-12) | PROC: 5A09457 Assistance with Respiratory Ventilation, 24-96 Consecutive Hours, Continuous Positive Airway Pressure (ICD-10-PCS; 2017-04-15) | PROC: 0D9E8ZZ Drainage of Large Intestine, Via Natural or Artificial Opening Endoscopic (ICD-10-PCS; 2017-04-20) | PROC: 0BD68ZX Extraction of Right Lower Lobe Bronchus, Via Natural or Artificial Opening Endoscopic, Diagnostic (ICD-10-PCS; 2017-04-22) | PROC: 0Y6J0Z1 Detachment at Left Lower Leg, High, Open Approach (ICD-10-PCS; 2017-04-25) | PROC: 0BDB8ZX Extraction of Left Lower Lobe Bronchus, Via Natural or Artificial Opening Endoscopic, Diagnostic (ICD-10-PCS; 2017-04-26) | PROC: 0BD48ZX Extraction of Right Upper Lobe Bronchus, Via Natural or Artificial Opening Endoscopic, Diagnostic (ICD-10-PCS; 2017-04-26) | PROC: 0BD88ZX Extraction of Left Upper Lobe Bronchus, Via Natural or Artificial Opening Endoscopic, Diagnostic (ICD-10-PCS; 2017-04-26) | PROC: 0BD58ZX Extraction of Right Middle Lobe Bronchus, Via Natural or Artificial Opening Endoscopic, Diagnostic (ICD-10-PCS; 2017-04-26) | PROC: 0BD38ZX Extraction of Right Main Bronchus, Via Natural or Artificial Opening Endoscopic, Diagnostic (ICD-10-PCS; 2017-04-26) | PROC: 0BD78ZX Extraction of Left Main Bronchus, Via Natural or Artificial Opening Endoscopic, Diagnostic (ICD-10-PCS; 2017-04-26) | PROC: 0BD68ZX Extraction of Right Lower Lobe Bronchus, Via Natural or Artificial Opening Endoscopic, Diagnostic (ICD-10-PCS; 2017-04-26) | DX: I77.72 Dissection of iliac artery (principal); J69.0 Pneumonitis due to inhalation of food and vomit; A41.9 Sepsis, unspecified organism; R65.21 Severe sepsis with septic shock; J96.01 Acute respiratory failure with hypoxia; K72.00 Acute and subacute hepatic failure without coma; K66.1 Hemoperitoneum; M62.82 Rhabdomyolysis; M79.A22 Nontraumatic compartment syndrome of left lower extremity; E87.0 Hyperosmolality and hypernatremia; J98.11 Atelectasis; D62 Acute posthemorrhagic anemia; J44.1 Chronic obstructive pulmonary disease with (acute) exacerbation; E87.1 Hypo-osmolality and hyponatremia; I82.611 Acute embolism and thrombosis of superficial veins of right upper extremity; K56.609 Unspecified intestinal obstruction, unspecified as to partial versus complete obstruction; B37.49 Other urogenital candidiasis; I70.211 Atherosclerosis of native arteries of extremities with intermittent claudication, right leg; I10 Essential (primary) hypertension; I25.10 Atherosclerotic heart disease of native coronary artery without angina pectoris; E78.5 Hyperlipidemia, unspecified; E83.42 Hypomagnesemia; E83.39 Other disorders of phosphorus metabolism; M72.9 Fibroblastic disorder, unspecified; E87.6 Hypokalemia; E03.9 Hypothyroidism, unspecified; R00.0 Tachycardia, unspecified; T85.898A Other specified complication of other internal prosthetic devices, implants and grafts, initial encounter; Y83.9 Surgical procedure, unspecified as the cause of abnormal reaction of the patient, or of later complication, without mention of misadventure at the time of the procedure; E87.5 Hyperkalemia; S30.1XXA Contusion of abdominal wall, initial encounter; Z85.3 Personal history of malignant neoplasm of breast; Z72.0 Tobacco use; K59.00 Constipation, unspecified ==

== ENCOUNTER 2017-05-12 16:00 | Inpatient (IN) | payer MEDICARE, MEDICAID ==
[~2017-05-12] VITALS: Ht 152.4 cm; Wt 68.9 kg
--- NOTE | ~2017-05-12 | RHP ---
PATIENT: OZZY MONTANA MEDICAL RECORD: [id number] ACCOUNT: [id number] LOCATION:[facility] D.1110 : 56 ADMISSION DATE: 05/12/17 REHABILITATION HISTORY AND PHYSICAL EXAMINATION POST ADMISSION PHYSICIAN EXAMINATION DATE OF ADMISSION TO THE REHAB: 05/12/2017. ADMITTING DIAGNOSIS: Critical illness myopathy HISTORY OF PRESENT ILLNESS: The patient is admitted to the inpatient rehabilitation for critical illness myopathy. She is a 57-year-old female patient with history of peripheral vascular disease. She was seen in the cardiac clinic recently and angiogram confirmed 100% occlusion of her right common iliac artery and reconstitution of the femoral head. She was admitted for REFERENCE TEST CLERK and stenting of the right common iliac artery. Right common iliac artery was successfully stented and flow was restored to the right lower leg; however, about an hour after intervention was completed, she developed a pulseless left foot. It appeared she had embolized from her aorta down to her left foot compromising her left foot and ankle. She underwent Emergency embolectomy and flow was restored to her ankle; however, she ended up requiring a fasciotomy on 04/02/2017 of the left calf as well as to avoid a compartment syndrome. Within a few days of her admission, she began to develop respiratory distress. She was concerned for aspiration pneumonia. She was evaluated by pulmonary and speech therapy. She remained on the ventilator for 5 days, receiving broad-spectrum antibiotics. She was extubated for 2 to 3 days. She then developed a severe anemia and subsequent retroperitoneal hematoma, believed to be from the Lovenox she was placed on to help avoid a pulmonary embolus. She has required multiple units of blood. After 2 to 3 days her hematocrit stabilized and her H&H had been monitored closely for any further bleeding. During this time, she required reintubation as there was concern for likely aspiration again because of the size of hematoma. She had compression of her distal colon as well as shifting of her kidneys. She developed acute renal failure within a few days of the hematoma. She did require dialysis for the next several days, but currently is on hold. She is regaining some renal function. She has been extubated and is now out on the medical floor and has been wearing 3 liters of O2 via nasal cannula. She did require a rkgrv-nja-hyph amputation of her left leg on 04/25/2017, as she developed dry gangrene of her toes in her left foot. She had a total of 21 units of blood during her acute hospitalization. She is now on an air mattress due to prolonged hospitalization. She has noted skin breakdown to her coccyx area and has a Rose catheter and has a pending urine culture that is positive for VRE per ID. She has been evaluated by cardiology, pulmonary, infectious disease, orthopedic, surgery, nephrology, oncology, anesthesiology, PT, RT, OT, speech therapy, and family practice. She lived at home prior to this hospitalization, but she and her daughter are planning for her to discharge home with the daughter while she recuperates. She was independent with her ADLs and mobility. She is currently min to total assist for ADLs and max assist to total assist for mobility with proximal muscle weakness noted. She is very weak at this time secondary to prolonged hospitalization, but plans to return home with her daughter as she now has a left mkevq-uro-bqkz amputation. COMORBIDITIES: In this patient include severe sepsis and septic shock, bacteremia, acute renal failure, peripheral vascular disease status post REFERENCE TEST CLERK, cpwpc-iw-plligje hypoxic respiratory failure, atelectasis, pleural effusions, HISTORY AND PHYSICAL [id number] OZZY MONTANA RYAN status post IVC filter, acute blood loss anemia, peripheral arterial disease, history of coronary artery disease, hypothyroidism, anasarca, constipation, cellulitis, respiratory distress syndrome, Gram-positive cocci in her blood, liver failure, hyponatremia, hypokalemia, amputation of her left leg, and also hip pain. PAST MEDICAL HISTORY: Significant for thyroid problems, hypertension, coronary artery disease, hyperlipidemia, PTCA, MS, stents, breast cancer, and acid reflux. PAST SURGICAL HISTORY: Includes double mastectomy. She has had a hysterectomy and coronary artery disease with stents. ALLERGIES: MORPHINE AND ADHESIVE TAPE. CURRENT MEDICATIONS: Include Epogen 6000 units subcutaneous, Monday, Monday and Monday. She is on Inderal-LA 160 mg daily, prednisone 5 mg daily on a taper, Protonix 40 mg b.i.d., Calmoseptine as needed, lisinopril 10 mg daily, levothyroxine 50 mcg daily, Floranex daily, furosemide 40 mg b.i.d., Lomotil 2 tabs b.i.d. with meals. She is on Cubicin 400 mg IV q.48 hours. She is on Plavix 75 mg daily, Wellbutrin 150 mg daily, aspirin two 81 mg daily. She is on intermittent resistant sliding scale with Humalog, tizanidine 4 mg q.6 hours p.r.n. spasm. She is on Crestor 5 mg q.h.s., Requip 0.25 mg q.h.s., potassium chloride ER 20 mEq b.i.d., Zofran 4 mg q.6 hours p.r.n. nausea and vomiting, Xopenex updrafts as needed, Rogers 10/325 one tab q.4 hours p.r.n., Neurontin 200 mg t.i.d., Questran 1 packet b.i.d., Omnipen or ampicillin she is on a g q.12 hours. She is on Elavil 50 mg q.h.s., and polyethylene glycol 17 grams in 8 ounces of water daily as needed. HABITS: No alcohol or tobacco use. FAMILY HISTORY: Noncontributory. SOCIAL HISTORY: The patient hopes to return back home with her daughter and get back to her prior level of functioning. REVIEW OF SYSTEMS: GENERAL: Does complain of weakness and fatigue. HEENT: She denies cold, cough, or congestion. CARDIOVASCULAR: Denies chest pain. PHYSICAL EXAMINATION: VITAL SIGNS: Stable, afebrile. GENERAL: An older than stated age white female in no distress. Alert upon exam. HEENT: Normocephalic and atraumatic. Mucosa moist. NECK: Supple. No lymphadenopathy. LUNGS: Clear at this time. HEART: Regular rate and rhythm. ABDOMEN: Benign. EXTREMITIES: No clubbing or cyanosis. She does have some peripheral edema. She has got a noted amputation on the left. NEUROLOGIC: Seems intact. LABORATORY DATA: Her white count is 11.7, H&H 9.3 and 29.9, and platelet count HISTORY AND PHYSICAL [id number] OZZY OMNTANA RYAN is 413. Her sodium is 133, potassium 4.3, BUN and creatinine of 39 and 1.0 and blood sugar is noted to be 100. ASSESSMENT: This is a 57-year-old female patient admitted to the rehab with a working diagnosis of critical illness myopathy secondary to prolonged hospitalization and multiple days on the ventilator. The patient has potential to make improvement. We instituted the following multidisciplinary therapies including to, but not limited to physical, occupational, respiratory, speech, nutritional services, prosthetics and orthotics. Given her complex medical condition and risk for more complications, rehabilitation services cannot be provided at a low level of care such as halfway facility. PLAN: 1. Admit to [facility] rehab for intensive inpatient therapy to include the following disciplines: A. Physical therapy to improve gait, all transfer skills and bed mobility to a modified independent level. B. Occupational therapy to improve activities of daily living to a modified independent level. C. Case management to assist with discharge planning and placement options. D. Nutrition to assist with nutritional needs. E. Rehabilitation nursing to assist in monitoring the patient's underlying medical conditions and to assist with any type of bowel or bladder management. 2. The patient's current medication and medical care will be continued. 3. The patient will be placed on standard fall precautions. 4. We will continue her antibiotics and we will make sure we keep up the dosage of this and complete the therapy. 5. We will go ahead and reconsult wound therapy and renal if necessary. 6. Followup on Monday morning or earlier if necessary. TRANSINT:[id number] Voice Confirmation ID: [id number] DOCUMENT ID: [id number] ED notes whether there has been none or any medical/functional change since admission: - ED attests patient continues to be appropriate for IRF: - SUZANNE GIBSON MD at 1739 CC: [id number] DICTATION DATE: 05/13/17 1016 GRADES 1 THRU 5 TEACHER: 05/13/17 1119 DIS IN 05/15/17 [id number] [place] [address]
[~2017-05-12 16:00] MED LIST changes: +ANCEF 1 GM/D5W 51 G1 IV; +BAYER CHEWABLE81 MG PO; +CLEOCIN PREMIX600 MG IV; +GABAPENTIN100 MG PO; -NEURONTIN 300300 MG PO; +PLAVIX75 MG PO; +REQUIP0.25 MG PO; -ROPINIROLE HCL2 MG PO
[2017-05-12] MEDS ORDERED: LASIX40 MG PO (18:06)
[2017-05-12] MEDS ORDERED: HUMALOG 30100 UNITS/ SC (18:06)
[2017-05-12] MEDS ORDERED: LOMOTIL TABLET1 TAB PO (18:07)
[2017-05-12] MEDS ORDERED: K-DUR20 MEQ PO (18:07)
[2017-05-12] MEDS ORDERED: FLORAJEN3 CAPS460 MG PO (18:08)
[2017-05-12] MEDS ORDERED: XOPENEX 0.0.63 MG/3 UPD (18:08)
[2017-05-12] MEDS ORDERED: QUESTRAN PACK4 G/PKT PO (18:08)
[2017-05-12] MEDS ORDERED: ZOFRAN4 MG PO (18:09)
[2017-05-12] MEDS ORDERED: SALINE NASAL SP45 ML NS (18:10)
[2017-05-12] MEDS ORDERED: AMPICILLIN IV (18:18)
[2017-05-12] MEDS ORDERED: CUBICIN500 MG IV (18:19)
[2017-05-12] MEDS ORDERED: PREDNISONE10 MG PO (18:22)
[2017-05-12] MEDS ORDERED: HYDROCODONE-APA1 TAB PO (18:23)
[2017-05-12] MEDS ORDERED: PROCRIT/EP3000 UNITS SQ (18:28)
[2017-05-12] MEDS ORDERED: CALMOSEPTINE OI71 GM TOPICAL (18:34)
[2017-05-13 04:16] VITALS: BP 134/73; BMI 29.7
[2017-05-13 08:15] LABS: BASOPHILS 0.3 % (0-2); EOSINOPHILS 3.3 % (0-7); HEMATOCRIT 29.9 % (36.0-48.0); HEMOGLOBIN 9.3 g/dL (12-16); IMMATURE GRANULOCYTES 2.4 % (0-5); LYMPHOCYTES 5.3 % (15-50); MCH 28.2 pg (26.0-34.0); MCHC 31.1 g/dL (31.0-37.0); MCV 90.6 fL (80.0-100.0); MEAN PLATELET VOLUME 9.9 fL (7.4-10.4); MONOCYTES 10.9 % (2-11); NEUTROPHILS 77.8 % (40-80); PLATELET COUNT 413 10x3/uL (130-400); RDW 17.6 % (11.5-14.5); WBC 11.7 10x3/uL (4.8-10.8)
[2017-05-13 08:31] LABS: ANION GAP 13.2 mmol/L (8-16); CALCIUM 8.6 mg/dL (8.5-10.1); CARBON DIOXIDE 27.1 mmol/L (21.0-32.0)
[2017-05-13 08:33] LABS: POTASSIUM - SERUM 4.3 mmol/L (3.5-5.1)
[2017-05-13 11:09] VITALS: Ht 152.4 cm; Wt 68.9 kg
[2017-05-13 14:24] VITALS: BP 104/60
[2017-05-13 19:22] VITALS: BP 104/52
[2017-05-14 08:34] VITALS: BP 78/46
[2017-05-14 08:43] VITALS: BP 98/68
[2017-05-14 22:40] VITALS: BP 78/45
[2017-05-15 05:34] LABS: BASOPHILS 0.3 % (0-2); EOSINOPHILS 1.7 % (0-7); HEMATOCRIT 26.8 % (36.0-48.0); HEMOGLOBIN 8.1 g/dL (12-16); IMMATURE GRANULOCYTES 4.9 % (0-5); LYMPHOCYTES 3.5 % (15-50); MCHC 30.2 g/dL (31.0-37.0); MCV 92.7 fL (80.0-100.0); MEAN PLATELET VOLUME 9.4 fL (7.4-10.4); MONOCYTES 9.6 % (2-11); PLATELET COUNT 393 10x3/uL (130-400); RBC 2.89 10x6/uL (4.00-5.40); RDW 17.2 % (11.5-14.5)
[2017-05-15 06:01] LABS: CALCIUM 8.4 mg/dL (8.5-10.1); CARBON DIOXIDE 20.4 mmol/L (21.0-32.0); CREATININE - SERUM 1.2 mg/dL (0.6-1.3)
[2017-05-15 06:02] LABS: ANION GAP 14.5 mmol/L (8-16); POTASSIUM - SERUM 5.9 mmol/L (3.5-5.1)
[2017-05-15 08:00] VITALS: BP 80/44
[2017-05-16] MEDS ORDERED: CRESTOR5 MG PO (04:15)
== END 2017-05-15 12:00 | disposition short-term general hospital (02) | DRG 91 ==
LOC: D.REHAB 16:00
PROVIDERS: Emergency Medicine
DX: G72.81 Critical illness myopathy (principal); A41.9 Sepsis, unspecified organism; R65.21 Severe sepsis with septic shock; J96.21 Acute and chronic respiratory failure with hypoxia; N17.9 Acute kidney failure, unspecified; J90 Pleural effusion, not elsewhere classified; J98.11 Atelectasis; D62 Acute posthemorrhagic anemia; L03.90 Cellulitis, unspecified; E87.1 Hypo-osmolality and hyponatremia; I73.9 Peripheral vascular disease, unspecified; E03.9 Hypothyroidism, unspecified; R60.1 Generalized edema; K59.00 Constipation, unspecified; K72.90 Hepatic failure, unspecified without coma; E87.6 Hypokalemia; Z89.512 Acquired absence of left leg below knee; I95.9 Hypotension, unspecified

== ENCOUNTER 2017-05-15 11:48 | Inpatient (IN) | payer MEDICARE, MEDICAID ==
[2017-05-15] VITALS (44 sets, daily range): BP systolic 68–192; BP diastolic 33–87; BMI 27.2
--- NOTE | ~2017-05-15 | OP ---
PATIENT NAME: OZZY MONTANA MEDICAL RECORD: [id number] :56 LOCATION:D.[facility] D.2301 ADMISSION DATE:05/15/17 SURGEON: NEY MORENO MD DATE OF OPERATION: 05/20/2017 PREOPERATIVE DIAGNOSES: 1. Candidemia. 2. Urinary tract infection. 3. Outdated central venous line. 4. Dyspnea. POSTOPERATIVE DIAGNOSES: 1. Candidemia. 2. Urinary tract infection. 3. Outdated central venous line. 4. Dyspnea. PROCEDURE: Insertion of right internal jugular triple lumen central venous catheter. SURGEON: Ney Moreno MD GENETIC COUNSELOR: None. BLOOD LOSS: Minimal. ANESTHESIA: Local. COMPLICATIONS: None. I have been asked by Dr. Barry to remove the patient's current indwelling left-sided central venous line in place, one on the right. OPERATIVE COURSE: The patient was positioned in the Trendelenburg position. The entire procedure was performed with the presence of a female nurse. The right neck was sterilely prepped and draped. A local anesthetic was used to infiltrate the skin and subcutaneous tissues at the base of the right neck. The right internal jugular vein was percutaneously accessed in an antegrade fashion. A guidewire passed easily. A small skin braxton was accomplished. A vessel dilator was used to dilate the subcutaneous tract. A triple lumen central venous catheter was inserted to the hub. It was sutured in place times 3. All lumens flushed easily and aspirated dark, nonpulsatile blood. The sterile dressing was applied. A chest x-ray is pending. TRANSINT:[id number] Voice Confirmation ID: [id number] DOCUMENT ID: [id number] OPERATIVE REPORT [id number] OZZY MONTANA ROBERT MD at 1019 CC: [id number] DICTATION DATE: 05/20/17 1726 CASINO INVESTIGATOR: 05/20/17 1741 DIS IN 05/23/[address] [address]
--- NOTE | ~2017-05-15 | CN ---
PATIENT NAME:OZZY FUNES MEDICAL RECORD: [id number] : 56 LOCATION:[facility].2301 ADMIT DATE: 05/15/17 ACCOUNT: [id number] CONSULTING PHYSICIAN: YAMILA FAJARDO MD REFERRING PHYSICIAN: SHIV COOPER DO DATE OF CONSULTATION: 05/15/2017 CONSULT REQUESTING PHYSICIAN: Cookie Mcbride MD REASON FOR CONSULTATION: Hypotension, tettm-je-mqtwiyd hypoxic respiratory failure, COPD. HISTORY OF PRESENT ILLNESS: Ms. Funes is a 57-year-old female who is very well known to us from previous hospitalization. She was just transferred on the to rehab and brought back with the patient in hypotension, found out she is anemic with a hematocrit of 26. Denies fever and chill. There are no night sweats. PAST MEDICAL HISTORY: 1. Hypertension. 2. Coronary artery disease with history of [place]. 3. Hypercholesterolemia. 4. Chronic obstructive pulmonary disease. 5. Gpklt-kn-piipuqm hypoxic respiratory failure. PAST SURGICAL HISTORY: 1. She has hysterectomy. 2. Bilateral mastectomy with reconstruction surgery. 3. She has a left below-knee amputation because of the arterial ischemia emboli. REVIEW OF SYSTEMS: Mainly in the history of present illness. ALLERGIES: SHE IS ALLERGIC TO ADHESIVE TAPE AND MORPHINE. PRESENT MEDICATIONS: On [employer] was reviewed. PERSONAL AND SOCIAL HISTORY: The patient is an ex-smoker. She is a nondrinker. FAMILY HISTORY: Noncontributory. PHYSICAL EXAMINATION: GENERAL: Now, the patient is lying comfortably. She is not in acute distress, but she is very weak and frail. VITAL SIGNS: The blood pressure was 76/43, pulse is 84, respiration is 16, temperature is 97.5, SpO2 is 97% on 3 liters nasal cannula. HEENT: Conjunctivae pink, sclerae not icteric. NECK: Neck is supple, no JVD. CHEST: There is no wheeze. There are basal crackles. HEART: Rhythm regular, normal sound, no murmur. ABDOMEN: Abdomen is soft. Bowel sounds present. No hepatosplenomegaly. RECTAL: Deferred. EXTREMITIES: No cyanosis, no clubbing, no pedal edema. SKIN: The skin is warm, normal turgor. CENTRAL NERVOUS SYSTEM: The patient is awake and alert. There is no obvious CONSULT REPORT [id number] JOHNSON cranial nerve abnormality. The gait was not tested. IMPRESSION: 1. Ikzrp-re-rsejbzb hypoxic respiratory failure. 2. Hypovolemic shock, most likely secondary to blood loss. 3. Hypotension, secondary to blood loss anemia. 4. Blood loss anemia. 5. Chronic obstructive pulmonary disease without exacerbation. 6. Status post left below-knee amputation. 7. Cellulitis of the left groin. 8. Acute kidney injury. RECOMMENDATIONS: 1. Continue Xopenex nebulizer. Start ipratropium nebulizer. Start methylprednisolone IV, give a stress dose of 125 mg IV times 1, then continue 16 mg q.8 hourly, Brovana and budesonide nebulizer. 2. Supplemental oxygen. 3. Agree with blood transfusion. Dr. Mcbride, thank you for involving me in the care of Ms. Funes. TRANSINT:[id number] Voice Confirmation ID: [id number] DOCUMENT ID: [id number] YAMILA FAJARDO MD at 1340 CC: COOKIE MCBRIDE [id number] DICTATION DATE: 05/15/17 1503 NURSING TECHN: 05/15/17 1639 DIS IN 05/23/17 [facility] [address] [place] [address]
--- NOTE | ~2017-05-15 | EC ---
PATIENT:OZZY MONTANA DATE OF SERVICE: 05/15/17 SEX: F MEDICAL RECORD: [id number] DATE OF : 56 LOCATION:[facility] D230 AGE OF PATIENT: 57 ADMISSION DATE: 05/15/17 REFERRING PHYSICIAN: INTERPRETING PHYSICIAN: GONZALO ADAME MD ECHOCARDIOGRAM REPORT ECHO CHARGES 4 ECHO COMPLETE CLINICAL DIAGNOSIS: CHEST PAIN ECHOCARDIOGRAPHIC MEASUREMENTS (adult normal given) AC root (d.<3.7cm) 3.2 cm LV Septum d (<1.2 cm> 1.4 cm Valve Excursion 1.2 cm LV Septum (systole) 1.5 cm Left Atria (s.<4.0cm> 3.2 cm LVPW d(<1.2cm) 1.5 cm RV (d.<2.3cm) 3.2 cm LVPW (sytole) 1.6 cm LV diastole(<5.6CM) 4.1 cm MV E-F(>70mm/sec) cm LV systole 3.2 cm LVOT Diameter 1.5 cm MV exc.(>10mm) 1.7 cm Est.ejection fraction (50-75%) % Pericardial Effusion N DOPPLER: LVIT cm/sec A 78.0 cm/sec E 66.0 cm/sec LA cm/sec RVSP 22 mmHg LVOT 124 cm/sec AOP1/2T m/s Asc. Ao 184 cm/sec RVOT 135 cm/sec RA cm/sec PA 161 cm/sec AV Gradient Peak 13.61mmHg AV Mean 7.55 mmHg AV Area 1.3 cm MV Gradient Peak 4.09 mmHg MV Mean 1.48 mmHg MV Area cm COMMENTS: Histologist Technologist: Les AGRAWAL Society Reporter: 1 Dr. Adame TAPE# PACS DATE OF SERVICE: 05/23/2017 PROCEDURE: Echocardiogram. FINDINGS: 1. Left ventricular chamber size is within normal limits. Left ventricular systolic function is normal. Overall ejection fraction estimated at 60%. 2. Left atrium, right atrium, and right ventricular chamber sizes are within normal limits. 3. Valvular structures have normal structure and motion. ECHOCARDIOGRAM REPORT [id number] OZZY MONTANA 4. Doppler interrogation reveals trace to mild tricuspid regurgitation, no other valvular insufficiency or stenosis and pulmonary systolic pressure is normal, estimated 22 mmHg. 5. No evidence of pericardial effusion or left ventricular thrombus. TRANSINT:[id number] Voice Confirmation ID: [id number] DOCUMENT ID: [id number] GONZALO ADAME MD at 1153 CC: [id number] DICTATION DATE: 05/23/17 1600 HAULPAK DRIVER: 05/23/17 1751 DIS IN 05/23/17 [facility] [address] [id number]
[~2017-05-15 11:48] MED LIST changes: +AMPICILLIN IV; +CALMOSEPTINE OI71 GM TOPICAL; +CUBICIN500 MG IV; +FLORAJEN3 CAPS460 MG PO; +HUMALOG 30100 UNITS/ SC; +K-DUR20 MEQ PO; +LASIX40 MG PO; +LOMOTIL TABLET1 TAB PO; +PREDNISONE10 MG PO; +PROCRIT/EP3000 UNITS SQ; +QUESTRAN PACK4 G/PKT PO; +SALINE NASAL SP45 ML NS; +XOPENEX 0.0.63 MG/3 UPD; +ZOFRAN4 MG PO
[2017-05-15 17:17] LABS: ALBUMIN 1.8 g/dL (3.4-5.0); BILIRUBIN - DIRECT 1.06 mg/dL (0.00-0.30); BILIRUBIN - INDIRECT 0.54 mg/dL (0.00-1.00); BILIRUBIN - TOTAL 1.6 mg/dL (0.2-1.3); PROTEIN - SERUM 5.6 g/dL (6.4-8.2)
[2017-05-15 21:24] LABS: HEMATOCRIT 36.5 % (36.0-48.0); HEMOGLOBIN 11.6 g/dL (12-16)
[2017-05-15 21:37] LABS: APTT 26.7 SECONDS (22.8-39.4); INR 1.24 (0.85-1.17); PROTIME 15.2 SECONDS (11.6-15.0)
[2017-05-15 21:38] LABS: D-DIMER-QUANTITATIVE 3.95 ug/mLFEU (0.20-0.54)
[2017-05-16] VITALS (27 sets, daily range): BP systolic 79–156; BP diastolic 43–81; BMI 27.3
[2017-05-16] MEDS ORDERED: CRESTOR5 MG PO (04:15)
[2017-05-16 04:18] LABS: HEMATOCRIT 32.3 % (36.0-48.0); HEMOGLOBIN 10.7 g/dL (12-16); LYMPHOCYTES 2.5 % (15-50); MCH 29.6 pg (26.0-34.0); MCHC 33.1 g/dL (31.0-37.0); NEUTROPHILS 93.3 % (40-80); PLATELET COUNT 391 10x3/uL (130-400); RDW 15.8 % (11.5-14.5); WBC 17.7 10x3/uL (4.8-10.8)
[2017-05-16 04:21] LABS: MCV 89.5 fL (80.0-100.0); RBC 3.61 10x6/uL (4.00-5.40)
[2017-05-16 04:48] LABS: ALBUMIN 1.8 g/dL (3.4-5.0); BILIRUBIN - TOTAL 1.33 mg/dL (0.2-1.3); CALCIUM 7.9 mg/dL (8.5-10.1); CARBON DIOXIDE 21.5 mmol/L (21.0-32.0); MAGNESIUM - SERUM 1.2 mg/dL (1.8-2.4); PHOSPHOROUS 4.9 mg/dL (2.5-4.9); PROTEIN - SERUM 5.8 g/dL (6.4-8.2)
[2017-05-16 04:58] LABS: ANION GAP 14.5 mmol/L (8-16)
[2017-05-16 10:37] LABS: HEMATOCRIT 31.1 % (36.0-48.0); HEMOGLOBIN 10.2 g/dL (12-16)
[2017-05-16 18:30] LABS: HEMATOCRIT 32.9 % (36.0-48.0); HEMOGLOBIN 10.6 g/dL (12-16)
[2017-05-17] VITALS (24 sets, daily range): BP systolic 15–192; BP diastolic 55–98
[2017-05-17 05:08] LABS: BASOPHILS 0.1 % (0-2); EOSINOPHILS 0 % (0-7); HEMATOCRIT 31.8 % (36.0-48.0); HEMOGLOBIN 10.1 g/dL (12-16); IMMATURE GRANULOCYTES 1.2 % (0-5); LYMPHOCYTES 2.9 % (15-50); MCH 28.9 pg (26.0-34.0); MCHC 31.8 g/dL (31.0-37.0); MCV 90.9 fL (80.0-100.0); MEAN PLATELET VOLUME 9.9 fL (7.4-10.4); MONOCYTES 10.4 % (2-11); NEUTROPHILS 85.4 % (40-80); PLATELET COUNT 393 10x3/uL (130-400); RDW 16.1 % (11.5-14.5); WBC 15.3 10x3/uL (4.8-10.8)
[2017-05-17 05:34] LABS: ALBUMIN 1.7 g/dL (3.4-5.0); ANION GAP 15.7 mmol/L (8-16); BILIRUBIN - TOTAL 0.67 mg/dL (0.2-1.3); CALCIUM 7.9 mg/dL (8.5-10.1); CARBON DIOXIDE 18.9 mmol/L (21.0-32.0); CREATININE - SERUM 0.9 mg/dL (0.6-1.3); POTASSIUM - SERUM 3.6 mmol/L (3.5-5.1); PROTEIN - SERUM 5.4 g/dL (6.4-8.2)
[2017-05-17 09:56] LABS: MAGNESIUM - SERUM 2.2 mg/dL (1.8-2.4); PHOSPHOROUS 4.9 mg/dL (2.5-4.9)
[2017-05-18] VITALS (24 sets, daily range): BP systolic 127–180; BP diastolic 56–95
[2017-05-18 05:33] LABS: HEMOGLOBIN 10.7 g/dL (12-16); MCH 28.8 pg (26.0-34.0); MCHC 31.5 g/dL (31.0-37.0); MCV 91.4 fL (80.0-100.0); MEAN PLATELET VOLUME 9.8 fL (7.4-10.4); PLATELET COUNT 381 10x3/uL (130-400); RBC 3.72 10x6/uL (4.00-5.40); RDW 15.9 % (11.5-14.5); WBC 21.3 10x3/uL (4.8-10.8)
[2017-05-18 05:34] LABS: INR 1.36 (0.85-1.17); PROTIME 16.3 SECONDS (11.6-15.0)
[2017-05-18 05:50] LABS: CALCIUM 7.7 mg/dL (8.5-10.1); CARBON DIOXIDE 19.5 mmol/L (21.0-32.0); CREATININE - SERUM 0.9 mg/dL (0.6-1.3)
[2017-05-18 06:00] LABS: MAGNESIUM - SERUM 1.5 mg/dL (1.8-2.4); PHOSPHOROUS 3.4 mg/dL (2.5-4.9); POTASSIUM - SERUM 2.5 mmol/L (3.5-5.1)
[2017-05-18 07:04] LABS: LYMPHOCYTES 2 % (15-50); MONOCYTES 14 % (2-11); NEUTROPHILS 69 % (40-80); PLATELET ESTIMATE NORMAL; ROULEAUX OCC
[2017-05-19] VITALS (24 sets, daily range): BP systolic 119–175; BP diastolic 68–99
[2017-05-19 02:52] LABS: APPEARANCE TURBID (CLEAR); BILIRUBIN NEGATIVE (NEGATIVE); COLOR BROWN (YELLOW); GLUCOSE NEGATIVE (NEGATIVE); KETONE NEGATIVE (NEGATIVE); NITRITE NEGATIVE (NEGATIVE); PROTEIN 2+ mg/dL (NEGATIVE); UROBILINOGEN NORMAL (NORMAL)
[2017-05-19 02:53] LABS: AMORPHOUS SEDIMENT >1+ /lpf (NONE SEEN); BACTERIA FEW /hpf (NONE SEEN); EPITHELIAL CELLS 0-5 /hpf (0-5); RED CELLS - URINE 0-5 /hpf (0-5); URIC ACID CRYSTALS 0-5 /hpf (NONE SEEN)
[2017-05-19 03:54] LABS: BASOPHILS 0.1 % (0-2); EOSINOPHILS 0 % (0-7); HEMATOCRIT 33.4 % (36.0-48.0); HEMOGLOBIN 10.6 g/dL (12-16); MCH 28.9 pg (26.0-34.0); MCHC 31.7 g/dL (31.0-37.0); MEAN PLATELET VOLUME 9.4 fL (7.4-10.4); MONOCYTES 10.8 % (2-11); NEUTROPHILS 82.1 % (40-80); PLATELET COUNT 350 10x3/uL (130-400); RBC 3.67 10x6/uL (4.00-5.40)
[2017-05-19 04:10] LABS: WBC 15.6 10x3/uL (4.8-10.8)
[2017-05-19 04:26] LABS: ALBUMIN 1.7 g/dL (3.4-5.0); ALKALINE PHOSPHATASE 167 U/L (46-116); ALT (SGPT) 16 U/L (10-68); BILIRUBIN - DIRECT 0.16 mg/dL (0.00-0.30); BILIRUBIN - INDIRECT 0.22 mg/dL (0.00-1.00); BILIRUBIN - TOTAL 0.38 mg/dL (0.2-1.3); CALC OSMOLALITY 278 mosm/kg (275-300); CALCIUM 7.6 mg/dL (8.5-10.1); CARBON DIOXIDE 24.7 mmol/L (21.0-32.0); CHLORIDE - SERUM 103 mmol/L (98-107); CREATININE - SERUM 0.8 mg/dL (0.6-1.3); GLUCOSE 183 mg/dL (74-106); MAGNESIUM - SERUM 1.5 mg/dL (1.8-2.4); PHOSPHOROUS 3.1 mg/dL (2.5-4.9); POTASSIUM - SERUM 4.4 mmol/L (3.5-5.1); PROTEIN - SERUM 4.9 g/dL (6.4-8.2); SODIUM 133 mmol/L (136-145); UREA NITROGEN 34 mg/dL (7-18); eGFR NON AFRICAN AMERICAN 78 mL/min (90-120)
[2017-05-20] VITALS (24 sets, daily range): BP systolic 80–152; BP diastolic 42–109
[2017-05-20 04:30] LABS: CALC OSMOLALITY 271 mosm/kg (275-300); CALCIUM 8.2 mg/dL (8.5-10.1); CARBON DIOXIDE 25.3 mmol/L (21.0-32.0); CHLORIDE - SERUM 103 mmol/L (98-107); CREATININE - SERUM 0.6 mg/dL (0.6-1.3); GLUCOSE 138 mg/dL (74-106); POTASSIUM - SERUM 4.8 mmol/L (3.5-5.1); SODIUM 133 mmol/L (136-145); eGFR NON AFRICAN AMERICAN > 90 mL/min (90-120)
[2017-05-20 04:31] LABS: BASOPHILS 0.2 % (0-2); EOSINOPHILS 0.8 % (0-7); HEMATOCRIT 35.2 % (36.0-48.0); IMMATURE GRANULOCYTES 3.1 % (0-5); LYMPHOCYTES 7.6 % (15-50); MCH 28.6 pg (26.0-34.0); MCHC 31.3 g/dL (31.0-37.0); MCV 91.4 fL (80.0-100.0); MEAN PLATELET VOLUME 9.7 fL (7.4-10.4); MONOCYTES 10.3 % (2-11); PLATELET COUNT 306 10x3/uL (130-400); RBC 3.85 10x6/uL (4.00-5.40); RDW 15.8 % (11.5-14.5); UREA NITROGEN 24 mg/dL (7-18); WBC 12.3 10x3/uL (4.8-10.8)
[2017-05-20 08:44] LABS: MAGNESIUM - SERUM 1.7 mg/dL (1.8-2.4); PHOSPHOROUS 3.2 mg/dL (2.5-4.9)
[2017-05-21] VITALS (23 sets, daily range): BP systolic 107–169; BP diastolic 61–95
[2017-05-21 04:11] LABS: BASOPHILS 0.1 % (0-2); HEMATOCRIT 35.6 % (36.0-48.0); HEMOGLOBIN 11.1 g/dL (12-16); IMMATURE GRANULOCYTES 2.7 % (0-5); LYMPHOCYTES 9.6 % (15-50); MCH 28.6 pg (26.0-34.0); MCHC 31.2 g/dL (31.0-37.0); MCV 91.8 fL (80.0-100.0); MEAN PLATELET VOLUME 9.6 fL (7.4-10.4); MONOCYTES 10.7 % (2-11); NEUTROPHILS 75.9 % (40-80); PLATELET COUNT 312 10x3/uL (130-400); RBC 3.88 10x6/uL (4.00-5.40); RDW 16.2 % (11.5-14.5); WBC 10.8 10x3/uL (4.8-10.8)
[2017-05-21 04:22] LABS: CALC OSMOLALITY 272 mosm/kg (275-300); CALCIUM 7.4 mg/dL (8.5-10.1); CARBON DIOXIDE 27.6 mmol/L (21.0-32.0); CHLORIDE - SERUM 101 mmol/L (98-107); CREATININE - SERUM 0.6 mg/dL (0.6-1.3); GLUCOSE 147 mg/dL (74-106); POTASSIUM - SERUM 4.6 mmol/L (3.5-5.1); SODIUM 134 mmol/L (136-145); UREA NITROGEN 18 mg/dL (7-18); eGFR NON AFRICAN AMERICAN > 90 mL/min (90-120)
[2017-05-21 07:40] LABS: MAGNESIUM - SERUM 2.8 mg/dL (1.8-2.4); PHOSPHOROUS 3.8 mg/dL (2.5-4.9)
[2017-05-21 10:48] LABS: CKMB 1.6 U/L (0.0-3.6); TROPONIN-I 0.017 ng/mL (0.000-0.060)
[2017-05-21 15:59] LABS: CKMB 1.5 U/L (0.0-3.6)
[2017-05-21 16:03] LABS: TROPONIN-I < 0.017 ng/mL (0.000-0.060)
[2017-05-21 22:18] LABS: CKMB 1.5 U/L (0.0-3.6)
[2017-05-21 22:19] LABS: TROPONIN-I 0.017 ng/mL (0.000-0.060)
[2017-05-22] VITALS (24 sets, daily range): BP systolic 93–193; BP diastolic 54–101
[2017-05-22 06:20] LABS: BASOPHILS 0.1 % (0-2); EOSINOPHILS 1.2 % (0-7); HEMATOCRIT 33.7 % (36.0-48.0); HEMOGLOBIN 10.2 g/dL (12-16); IMMATURE GRANULOCYTES 1.7 % (0-5); LYMPHOCYTES 4.8 % (15-50); MCH 28.3 pg (26.0-34.0); MCHC 30.3 g/dL (31.0-37.0); MCV 93.6 fL (80.0-100.0); MEAN PLATELET VOLUME 9.4 fL (7.4-10.4); MONOCYTES 7.6 % (2-11); NEUTROPHILS 84.6 % (40-80); PLATELET COUNT 296 10x3/uL (130-400); RDW 16.3 % (11.5-14.5)
[2017-05-22 06:27] LABS: WBC 14.9 10x3/uL (4.8-10.8)
[2017-05-22 06:37] LABS: CALC OSMOLALITY 271 mosm/kg (275-300); CALCIUM 8.3 mg/dL (8.5-10.1); CARBON DIOXIDE 27.6 mmol/L (21.0-32.0); CHLORIDE - SERUM 102 mmol/L (98-107); CREATININE - SERUM 0.5 mg/dL (0.6-1.3); GLUCOSE 139 mg/dL (74-106); POTASSIUM - SERUM 4.5 mmol/L (3.5-5.1); SODIUM 135 mmol/L (136-145); eGFR NON AFRICAN AMERICAN > 90 mL/min (90-120)
[2017-05-22 06:38] LABS: UREA NITROGEN 12 mg/dL (7-18)
[2017-05-22 07:36] LABS: PHOSPHOROUS 3.2 mg/dL (2.5-4.9)
[2017-05-22 07:38] LABS: MAGNESIUM - SERUM 1.7 mg/dL (1.8-2.4)
[2017-05-23] VITALS (15 sets, daily range): BP systolic 92–148; BP diastolic 44–95
[2017-05-23 06:21] LABS: CALCIUM 8.2 mg/dL (8.5-10.1); CARBON DIOXIDE 28.3 mmol/L (21.0-32.0); CHLORIDE - SERUM 100 mmol/L (98-107); CREATININE - SERUM 0.5 mg/dL (0.6-1.3); GLUCOSE 182 mg/dL (74-106); MAGNESIUM - SERUM 1.6 mg/dL (1.8-2.4); SODIUM 131 mmol/L (136-145); eGFR NON AFRICAN AMERICAN > 90 mL/min (90-120)
[2017-05-23 06:22] LABS: CALC OSMOLALITY 269 mosm/kg (275-300); PHOSPHOROUS 4.3 mg/dL (2.5-4.9); POTASSIUM - SERUM 5.7 mmol/L (3.5-5.1); UREA NITROGEN 17 mg/dL (7-18)
[2017-05-23 06:27] LABS: BASOPHILS 0.1 % (0-2); EOSINOPHILS 0.3 % (0-7); HEMATOCRIT 31.2 % (36.0-48.0); HEMOGLOBIN 9.7 g/dL (12-16); IMMATURE GRANULOCYTES 0.8 % (0-5); LYMPHOCYTES 3.7 % (15-50); MCHC 31.1 g/dL (31.0-37.0); MCV 93.4 fL (80.0-100.0); MEAN PLATELET VOLUME 9.6 fL (7.4-10.4); MONOCYTES 6.4 % (2-11); NEUTROPHILS 88.7 % (40-80); PLATELET COUNT 299 10x3/uL (130-400); RBC 3.34 10x6/uL (4.00-5.40); RDW 16.9 % (11.5-14.5); WBC 17.5 10x3/uL (4.8-10.8)
[2017-05-28 17:07] LABS: AMPHOTERICIN B MIC 2.0 ug/mL (())
== END 2017-05-23 18:10 | disposition short-term general hospital (02) | DRG 871 ==
LOC: D.ICU 11:48
PROVIDERS: Family Medicine; Internal Medicine Cardiovascular Disease; Internal Medicine Gastroenterology; Internal Medicine Pulmonary Disease; Student in an Organized Health Care Education/Training Program
PROC: 05HM33Z Insertion of Infusion Device into Right Internal Jugular Vein, Percutaneous Approach (ICD-10-PCS; principal; 2017-05-20)
DX: A41.9 Sepsis, unspecified organism (principal); J96.21 Acute and chronic respiratory failure with hypoxia; R57.1 Hypovolemic shock; D62 Acute posthemorrhagic anemia; K92.2 Gastrointestinal hemorrhage, unspecified; M84.48XA Pathological fracture, other site, initial encounter for fracture; L03.314 Cellulitis of groin; N39.0 Urinary tract infection, site not specified; N17.9 Acute kidney failure, unspecified; J44.9 Chronic obstructive pulmonary disease, unspecified; R58 Hemorrhage, not elsewhere classified; Z89.512 Acquired absence of left leg below knee; B96.20 Unspecified Escherichia coli [E. coli] as the cause of diseases classified elsewhere; E87.5 Hyperkalemia; I73.9 Peripheral vascular disease, unspecified; I25.10 Atherosclerotic heart disease of native coronary artery without angina pectoris; I12.9 Hypertensive chronic kidney disease with stage 1 through stage 4 chronic kidney disease, or unspecified chronic kidney disease; N18.9 Chronic kidney disease, unspecified; E03.9 Hypothyroidism, unspecified; R00.1 Bradycardia, unspecified

== ENCOUNTER → 2017-10-09 16:27 | Outpatient (CLI) | payer MEDICARE, MEDICAID ==
[2017-05-16 15:44] VITALS: BMI 27.3
[2017-10-09 18:54] LABS: HEMATOCRIT 32.3 % (36.0-48.0); HEMOGLOBIN 9.9 g/dL (12-16); IMMATURE GRANULOCYTES 0.5 % (0-5); LYMPHOCYTES 13.8 % (15-50); MCH 29.3 pg (26.0-34.0); MCHC 30.7 g/dL (31.0-37.0); MCV 95.6 fL (80.0-100.0); MEAN PLATELET VOLUME 9.5 fL (7.4-10.4); NEUTROPHILS 67.7 % (40-80); RBC 3.38 10x6/uL (4.00-5.40); RDW 15.3 % (11.5-14.5); WBC 9.8 10x3/uL (4.8-10.8)
[2017-10-09 18:56] LABS: PLATELET COUNT 464 10x3/uL (130-400)
[2017-10-09 19:52] LABS: CREATININE - SERUM 0.5 mg/dL (0.6-1.3)
== END | disposition home or self-care (01) ==
LOC: D.LABREF 16:27
DX: N39.0 Urinary tract infection, site not specified (principal); T83.092A Other mechanical complication of nephrostomy catheter, initial encounter

== ENCOUNTER → 2017-10-13 11:38 | Outpatient (CLI) | payer MEDICARE, MEDICAID ==
[2017-05-16 15:44] VITALS: BMI 27.3
[2017-10-13 15:36] LABS: BASOPHILS 1.4 % (0-2); EOSINOPHILS 4.6 % (0-7); HEMATOCRIT 33.7 % (36.0-48.0); HEMOGLOBIN 10.5 g/dL (12-16); IMMATURE GRANULOCYTES 0.3 % (0-5); LYMPHOCYTES 15.8 % (15-50); MCH 29.9 pg (26.0-34.0); MCHC 31.2 g/dL (31.0-37.0); MEAN PLATELET VOLUME 9.4 fL (7.4-10.4); MONOCYTES 13.4 % (2-11); NEUTROPHILS 64.5 % (40-80); PLATELET COUNT 421 10x3/uL (130-400); RBC 3.51 10x6/uL (4.00-5.40); RDW 15.6 % (11.5-14.5); WBC 9.1 10x3/uL (4.8-10.8)
[2017-10-13 16:05] LABS: ALBUMIN 2.3 g/dL (3.4-5.0); ALKALINE PHOSPHATASE 212 U/L (46-116); ALT (SGPT) 20 U/L (10-68); BILIRUBIN - TOTAL 0.12 mg/dL (0.2-1.3); CALC OSMOLALITY 276 mosm/kg (275-300); CALCIUM 9.4 mg/dL (8.5-10.1); CHLORIDE - SERUM 105 mmol/L (98-107); CHOL - HDL RATIO 3.6 ratio (2.3-4.1); CHOLESTEROL, TOTAL 116 mg/dL (0-200); CREATININE - SERUM 0.5 mg/dL (0.6-1.3); GLUCOSE 131 mg/dL (74-106); HDL CHOLESTEROL 32 mg/dL (32-96); LDL CHOLESTEROL 65 mg/dL (0-100); POTASSIUM - SERUM 4.7 mmol/L (3.5-5.1); PROTEIN - SERUM 6.3 g/dL (6.4-8.2); SODIUM 138 mmol/L (136-145); THYROID STIMULATING HORMONE 2.73 uIU/mL (0.36-3.74); TRIGLYCERIDE 96 mg/dL (30-200); UREA NITROGEN 11 mg/dL (7-18); eGFR NON AFRICAN AMERICAN > 90 mL/min (90-120)
== END | disposition home or self-care (01) ==
LOC: D.LABREF 11:38
PROVIDERS: Family Medicine
DX: N39.0 Urinary tract infection, site not specified (principal); I73.9 Peripheral vascular disease, unspecified; I10 Essential (primary) hypertension

== ENCOUNTER → 2017-10-23 17:59 | Outpatient (CLI) | payer MEDICARE, MEDICAID ==
[2017-05-16 15:44] VITALS: BMI 27.3
[2017-10-23 18:40] LABS: BASOPHILS 0.8 % (0-2); EOSINOPHILS 1.5 % (0-7); HEMATOCRIT 36.2 % (36.0-48.0); HEMOGLOBIN 11.6 g/dL (12-16); IMMATURE GRANULOCYTES 0.2 % (0-5); LYMPHOCYTES 9.7 % (15-50); MCH 30.1 pg (26.0-34.0); MEAN PLATELET VOLUME 9.5 fL (7.4-10.4); MONOCYTES 8.9 % (2-11); NEUTROPHILS 78.9 % (40-80); PLATELET COUNT 359 10x3/uL (130-400); RBC 3.85 10x6/uL (4.00-5.40); RDW 15.4 % (11.5-14.5); WBC 9.3 10x3/uL (4.8-10.8)
[2017-10-23 18:58] LABS: CREATININE - SERUM 0.7 mg/dL (0.6-1.3)
== END | disposition home or self-care (01) ==
LOC: D.LABREF 17:59
PROVIDERS: Internal Medicine
DX: B96.5 Pseudomonas (aeruginosa) (mallei) (pseudomallei) as the cause of diseases classified elsewhere (principal); N39.0 Urinary tract infection, site not specified

== ENCOUNTER → 2017-10-30 18:02 | Outpatient (CLI) | payer MEDICARE, MEDICAID ==
[2017-05-16 15:44] VITALS: BMI 27.3
[2017-10-30 18:21] LABS: BASOPHILS 0.7 % (0-2); EOSINOPHILS 4.2 % (0-7); HEMATOCRIT 36.4 % (36.0-48.0); HEMOGLOBIN 11.7 g/dL (12-16); IMMATURE GRANULOCYTES 0.4 % (0-5); LYMPHOCYTES 13.2 % (15-50); MCH 30.1 pg (26.0-34.0); MCHC 32.1 g/dL (31.0-37.0); MCV 93.6 fL (80.0-100.0); MEAN PLATELET VOLUME 9.5 fL (7.4-10.4); NEUTROPHILS 73.5 % (40-80); PLATELET COUNT 405 10x3/uL (130-400); RBC 3.89 10x6/uL (4.00-5.40); RDW 15.2 % (11.5-14.5); WBC 9.7 10x3/uL (4.8-10.8)
[2017-10-30 21:09] LABS: CREATINE KINASE 28 UL (21-215); UREA NITROGEN 16 mg/dL (7-18)
== END | disposition home or self-care (01) ==
LOC: D.LABREF 18:02
PROVIDERS: Internal Medicine
DX: N39.0 Urinary tract infection, site not specified (principal)

== ENCOUNTER → 2017-11-06 16:08 | Outpatient (CLI) | payer MEDICARE, MEDICAID ==
[2017-05-16 15:44] VITALS: BMI 27.3
[2017-11-06 16:20] LABS: HEMATOCRIT 36.5 % (36.0-48.0); HEMOGLOBIN 11.9 g/dL (12-16); IMMATURE GRANULOCYTES 0.2 % (0-5); LYMPHOCYTES 17.8 % (15-50); MCH 30.4 pg (26.0-34.0); MCHC 32.6 g/dL (31.0-37.0); MCV 93.4 fL (80.0-100.0); MEAN PLATELET VOLUME 9.2 fL (7.4-10.4); MONOCYTES 10.2 % (2-11); NEUTROPHILS 66.8 % (40-80); PLATELET COUNT 369 10x3/uL (130-400); RBC 3.91 10x6/uL (4.00-5.40); RDW 14.8 % (11.5-14.5); WBC 8.4 10x3/uL (4.8-10.8)
[2017-11-06 16:54] LABS: CREATININE - SERUM 0.6 mg/dL (0.6-1.3)
== END | disposition home or self-care (01) ==
LOC: D.LABREF 16:08
PROVIDERS: Internal Medicine
DX: N39.0 Urinary tract infection, site not specified (principal)

== ENCOUNTER → 2017-11-13 19:41 | Outpatient (CLI) | payer MEDICARE, MEDICAID ==
[2017-05-16 15:44] VITALS: BMI 27.3
[2017-11-13 19:56] LABS: BASOPHILS 0.7 % (0-2); EOSINOPHILS 4.6 % (0-7); HEMATOCRIT 38.5 % (36.0-48.0); HEMOGLOBIN 12.3 g/dL (12-16); IMMATURE GRANULOCYTES 0.2 % (0-5); MCH 30.3 pg (26.0-34.0); MCHC 31.9 g/dL (31.0-37.0); MCV 94.8 fL (80.0-100.0); MEAN PLATELET VOLUME 9.5 fL (7.4-10.4); MONOCYTES 9.9 % (2-11); NEUTROPHILS 70.6 % (40-80); PLATELET COUNT 382 10x3/uL (130-400); RBC 4.06 10x6/uL (4.00-5.40); RDW 14.7 % (11.5-14.5); WBC 8.4 10x3/uL (4.8-10.8)
[2017-11-13 20:24] LABS: CREATININE - SERUM 0.7 mg/dL (0.6-1.3)
== END | disposition home or self-care (01) ==
LOC: D.LABREF 19:41
PROVIDERS: Internal Medicine
DX: N39.0 Urinary tract infection, site not specified (principal)

== ENCOUNTER → 2017-11-28 13:22 | Outpatient (CLI) | payer MEDICARE, MEDICAID ==
[2017-05-16 15:44] VITALS: BMI 27.3
[2017-11-28 15:13] LABS: BASOPHILS 0.6 % (0-2); EOSINOPHILS 3.3 % (0-7); HEMATOCRIT 37.9 % (36.0-48.0); HEMOGLOBIN 12.2 g/dL (12-16); IMMATURE GRANULOCYTES 0.5 % (0-5); LYMPHOCYTES 14.4 % (15-50); MCH 30.3 pg (26.0-34.0); MCHC 32.2 g/dL (31.0-37.0); MEAN PLATELET VOLUME 9.4 fL (7.4-10.4); MONOCYTES 10.1 % (2-11); NEUTROPHILS 71.1 % (40-80); PLATELET COUNT 412 10x3/uL (130-400); RBC 4.03 10x6/uL (4.00-5.40); RDW 13.7 % (11.5-14.5); WBC 8.7 10x3/uL (4.8-10.8)
[2017-11-28 15:32] LABS: CREATININE - SERUM 0.8 mg/dL (0.6-1.3)
== END | disposition home or self-care (01) ==
LOC: D.LABREF 13:22
DX: I10 Essential (primary) hypertension (principal); B49 Unspecified mycosis; N39.0 Urinary tract infection, site not specified

== ENCOUNTER → 2018-06-06 09:56 | Outpatient (CLI) | payer MEDICARE ==
[2017-05-16 15:44] VITALS: BMI 27.3
[2018-06-06 12:44] LABS: BASOPHILS 0.4 % (0-2); EOSINOPHILS 0.6 % (0-7); HEMATOCRIT 40.4 % (36.0-48.0); HEMOGLOBIN 13.2 g/dL (12-16); IMMATURE GRANULOCYTES 0.2 % (0-5); LYMPHOCYTES 5.2 % (15-50); MCH 29.7 pg (26.0-34.0); MCHC 32.7 g/dL (31.0-37.0); MCV 90.8 fL (80.0-100.0); MEAN PLATELET VOLUME 10.1 fL (7.4-10.4); MONOCYTES 10.3 % (2-11); NEUTROPHILS 83.3 % (40-80); RBC 4.45 10x6/uL (4.00-5.40); RDW 15.7 % (11.5-14.5)
[2018-06-06 12:45] LABS: PLATELET COUNT 255 10x3/uL (130-400)
[2018-06-06 12:56] LABS: APTT 30.2 SECONDS (22.8-39.4); INR 0.95 (0.85-1.17); PROTIME 12.2 SECONDS (11.6-15.0)
[2018-06-06 13:00] LABS: ALBUMIN 2.9 g/dL (3.4-5.0); ANION GAP 14.2 mmol/L (8-16); BILIRUBIN - TOTAL 0.17 mg/dL (0.2-1.3); CALCIUM 8.8 mg/dL (8.5-10.1); CARBON DIOXIDE 26.1 mmol/L (21.0-32.0); MAGNESIUM - SERUM 1.5 mg/dL (1.8-2.4); POTASSIUM - SERUM 4.3 mmol/L (3.5-5.1); PROTEIN - SERUM 7.4 g/dL (6.4-8.2)
[2018-06-06 13:05] LABS: APPEARANCE CLOUDY (CLEAR); BACTERIA MODERATE /hpf (NONE SEEN); BILIRUBIN NEGATIVE (NEGATIVE); COLOR PINK (YELLOW); EPITHELIAL CELLS 0-5 /hpf (0-5); GLUCOSE NEGATIVE (NEGATIVE); KETONE NEGATIVE (NEGATIVE); NITRITE NEGATIVE (NEGATIVE); PROTEIN NEGATIVE (NEGATIVE); RED CELLS - URINE >50 /hpf (0-5); UROBILINOGEN NORMAL (NORMAL)
[2018-06-06 13:06] LABS: MUCUS <1+ /lpf (NONE SEEN)
== END | disposition home or self-care (01) ==
LOC: D.LABREF 09:56
PROVIDERS: ATTEND Family Medicine
DX: T83.84XA Pain due to genitourinary prosthetic devices, implants and grafts, initial encounter (principal)

== ENCOUNTER 2019-03-18 17:01 | Outpatient (CLI) | payer MEDICARE ==
[2017-05-16 15:44] VITALS: BMI 27.3
== END 2019-03-18 17:02 | disposition home or self-care (01) ==
LOC: D.MAMMO 17:01
PROVIDERS: ATTEND Family Medicine
DX: Z85.3 Personal history of malignant neoplasm of breast (principal)